=== PATIENT | female | born 1935 | race Caucasian/White ===

== ENCOUNTER 2016-09-22 08:08 | Inpatient (IN) | payer MEDICARE, BC ==
[~2016-09-22] VITALS: Ht 167.6 cm; Wt 64.3 kg
[~2016-09-22 08:08] MED LIST: ACET325T45 PO; ASC500 PO; ASPI81TA3 PO; CALC-762 PO; CHOL10009 PO; CLON0.5T4 PO; DOCU100C PO; FER325 PO; GABA300C16 PO; METO-448 PO; MULT-235 PO; POLY17PO3 PO; ROPI0.25 PO; SENN-53 PO
[2016-09-22] MEDS ORDERED: PIPER-TAZO 3.375 GM IV (PMX) 100 ML IVPB STA (08:22)
[2016-09-22] MEDS ORDERED: SOD CHLORIDE 0.9% 1,000 ML IV ONE ×2 (08:30)
[2016-09-22] MEDS ORDERED: VANCOMYCIN 1 GM (PMX) 250 ML IVPB ONE (08:30)
[2016-09-22] MEDS ORDERED: HYDR-906 PO (08:42)
[2016-09-22] MEDS ORDERED: ONDA4TAB95 PO (08:43)
[2016-09-22] MEDS ORDERED: ZOLP5TAB6 PO (08:44)
[2016-09-22] MEDS ORDERED: GABA300C16 PO (08:45)
[2016-09-22] MEDS ORDERED: CYAN100080 PO (08:46)
--- NOTE | 2016-09-22 09:27 | RADRPT ---
PROCEDURE: Chest Radiograph. CLINICAL INDICATION: Sepsis TECHNIQUE: Single frontal chest radiograph. COMPARISON: Chest radiograph 06/03/2016 FINDINGS: The patient is rotated. Heart size is poorly evaluated. Atherosclerotic calcifications are present . Lung volumes are decreased. There is mild right basilar atelectasis. There is new patchy left ba silar air space disease suggesting infiltrate and possible underlying effusion. The bones are int act. IMPRESSION: 1. New left basilar air space disease suggesting left basilar infiltrate and possible underlying ef fusion. A lateral view can aid in evaluating for pleural effusion. 2. Mild right basilar atelectasis. 3. Atherosclerotic vascular disease RPTAT: KK .Matteo Dyson MD, MD Date Time Electronically viewed and signed by .Matteo Dyson MD, MD on 09/22/2016 09:27 .B/
[2016-09-22 09:51] LABS: ADD SCAN DIFF NO
[2016-09-22 09:55] LABS: BASOPHILS % 0.2 % (0.0-2.0); HEMATOCRIT 33.2 % (37.0-47.0); HEMOGLOBIN 10.3 g/dl (12.0-16.0); LYMPHOCYTES % 15.6 % (15.0-51.0); MEAN CORPUSCULAR HEMOGLOBIN 32.8 pg (29.0-33.0); MEAN CORPUSCULAR VOLUME 105.7 fl (82.0-101.0); MEAN PLATELET VOLUME 9.5 fl (7.4-10.4); MONOCYTE # 0.3 10^3/ul (0.3-0.9); NEUTROPHIL # 4.9 10^3/ul (1.6-7.5); NEUTROPHILS % 78.7 % (39.0-77.0); PLATELET COUNT 108 10^3/UL (140-415); RED BLOOD COUNT 3.14 10^6/ul (4.20-5.40); RED CELL DISTRIBUTION WIDTH 17.8 % (11.5-14.5); WHITE BLOOD COUNT 6.2 10^3/ul (4.8-10.8)
[2016-09-22 10:03] LABS: INR 1.29; PROTIME 16.2 Sec (12.2-14.2); PT RATIO 1.3
[2016-09-22 10:04] LABS: PARTIAL THROMBOPLASTIN TIME 34.4 Sec (25.0-35.0)
[2016-09-22 10:09] LABS: ALBUMIN 2.2 g/dl (3.3-4.9)
[2016-09-22 10:10] LABS: POTASSIUM 3.7 mmol/L (3.5-5.1)
[2016-09-22 10:12] LABS: ALBUMIN/GLOBULIN RATIO 0.75; BILIRUBIN,INDIRECT 0.7 mg/dl (0-1.1); BILIRUBIN,TOTAL 0.7 mg/dl (0.2-1.3); CREATININE 0.5 mg/dl (0.44-1.00); TOTAL PROTEIN 5.1 g/dl (6.1-8.1)
[2016-09-22 10:24] LABS: TROPONIN-I 0.014 ng/ml (0.00-0.12)
[2016-09-22 11:15] LABS: ADD UMIC YES; URINE BILIRUBIN (Dip) NEGATIVE (NEGATIVE); URINE BLOOD (Dip) TRACE (NEGATIVE); URINE COLOR LT. YELLOW (YELLOW); URINE GLUCOSE (Dip) NEGATIVE (NEGATIVE); URINE KETONES (Dip) NEGATIVE (NEGATIVE); URINE LEUKOCYTE ESTERASE (Dip) 1+ (NEGATIVE); URINE NITRITE (Dip) NEGATIVE (NEGATIVE); URINE TOTAL PROTEIN (Dip) NEGATIVE (NEGATIVE); URINE UROBILINOGEN (Dip) 0.2 E.U./dL (0.1-1.0)
[2016-09-22 11:34] LABS: BACTERIA,URINE RARE; URINE RBCS 0-2 /HPF (0)
[2016-09-22] MEDS ORDERED: ACETAMINOPHEN 500 MG TAB PO STA (11:50)
[2016-09-22] MEDS ORDERED: ONDANSETRON 4 MG INJ IV PRN ×2 (12:00→14:30)
[2016-09-22] MEDS ORDERED: ACETAMINOPHEN 325 MG TAB PO PRN ×3 (12:00→14:30)
[2016-09-22 12:43] VITALS: TEMP 100.1
[2016-09-22 13:00] VITALS: BP 133/70; PULSE 72; RESP 18
[2016-09-22 13:11] VITALS: PULSE 70
[2016-09-22 14:30] VITALS: Ht 167.6 cm; Wt 64.3 kg
[2016-09-22] MEDS ORDERED: DOCUSATE SODIUM 100 MG CAP PO PRN (14:30)
[2016-09-22] MEDS ORDERED: MAGNESIUM HYDROXIDE 30ML CUP PO PRN (14:30)
[2016-09-22] MEDS ORDERED: ALBUTEROL/IPRATROPIUM (NEB) 3 ML AMP NEB PRN (14:30)
[2016-09-22] MEDS ORDERED: NACL 0.9% 3 ML SYG IV SCH (14:30)
[2016-09-22] MEDS ORDERED: VANCOMYCIN IV PER PHARMACY XX SCH (14:30)
--- NOTE | 2016-09-22 15:23 | HP ---
DATE OF ADMISSION: 09/22/2016 REASON FOR ADMISSION: Urinary tract infection, pneumonia, fevers high grade. HISTORY OF PRESENT ILLNESS: The patient is an unfortunate 80-year-old Burkinan female with history o f hypertension, depression, gastroesophageal reflux disease, anxiety, anemia, history of left femur fracture status post surgery, history of constipation who currently resides at [facility]. She previously presented under my care in May 2016 with left femur fracture. At that time, she wa s seen by Dr. Mckeon and he noted that the patient does have intramedullary tayler in place with no loosening, so patient did not require surgery. Also, she did require 2 units of packed red blood ce lls secondary symptomatic anemia. The patient also has history of elevated CEA, paroxysmal atrial f ibrillation, malnutrition, leukopenia, and restless leg syndrome. The patient resides at [facility]. She was in usual state of health up until the day when she was note d to be more weak, also noted to have fevers and she was transferred to [facility] Department. Upon evaluation, the patient underwent extensive workup including a chest x-ray which showed new left basilar airspace disease suggesting left basilar infiltrate and possible underlying effusion and lateral view can aid in the evaluation for pleural effusion. There is mild right basi lar atelectasis and atherosclerotic vascular disease. Labs revealed slight anemia and urinalysis co nfirmed mild UTI with leukocyte esterase +1, WBCs 10 to 25. In the ER, patient received broad spect rum antibiotic with vancomycin and Zosyn. In looking at the patient's old records from previous hos pitalization, the patient had positive MRSA of the nares. Upon evaluation of the patient, the patie nt is a poor historian secondary to her dementia. She cannot provide much history, but she does ans wer questions simply with a few sentences. The patient is admitted for further care. PAST MEDICAL HISTORY: Includes hypertension, left femoral fracture, gastroesophageal reflux disease , anxiety, anemia, depression, chronic pain. ALLERGIES: MORPHINE. SOCIAL HISTORY: The patient denies tobacco, alcohol or IV drug use. The patient is a poor historia n. She resides at [facility]. SURGICAL HISTORY: Left femur intramedullary tayler placement. FAMILY HISTORY: The patient has a brother and his name is Ethan. I left him a message and his p [place] number area code [phone]. MEDICATIONS: Patient's medications extensive and include the followin. Tylenol 650 q.6h. p.r.n. 2. [place] 5/325 q.6h. p.r.n. 3. Zofran 4 mg q.6h. p.r.n. for nausea and vomiting. 4. Ambien 5 mg at bedtime p.r.n. for insomnia. 5. Dulcolax 100 mg twice a day. 6. Metoprolol tartrate 25 mg b.i.d. 7. Clonazepam 0.5 mg t.i.d. 8. Gabapentin 300 mg t.i.d. 9. Vitamin B12 1000 mg q. weekly on Monday. 10. Multivitamin 1 tablet daily. 11. Oyster Guillaume plus D 1 tab daily. 12. Ropinirole 0.25 mg at bedtime. 13. Laxatives with Senna 1 tab at bedtime. 14. Vitamin D 1000 mg daily. PHYSICAL EXAMINATION: VITAL SIGNS: Temperature is 100.1, pulse 70, respirations 16, blood pressure 120/79, saturation 100 % on 3 liters. T-max 102.4. GENERAL: The patient in no acute distress. HEENT: Right posterior head, questionable soft tissue area suggestive of some deficient skull bone. The patient is pale. CARDIOVASCULAR: S1 and S2, regular rate. LUNGS: Clear. ABDOMEN: Soft, nontender. EXTREMITIES: Trace edema lower extremities. The patient is moving all extremities. LABORATORY DATA: White count is actually normal at 6.2, hemoglobin 10.3, hematocrit 33, platelet co unt of 108, neutrophils 79%, lymphocytes 16%, platelet count was 108. Sodium is 139, potassium 3.7, chloride 101, bicarbonate 32, BUN is 11, creatinine 0.5, glucose of 82. Lactic acid is normal at 1 .2. LFTs are normal. Albumin is low at 2.2 suggestive of moderate protein malnutrition. UA shows nitrite present, leukocyte esterase +1, WBC 10 to 25, INR is 1.29. IMAGING TESTS: Chest x-ray shows new left basilar airspace disease suggesting left basilar infiltra te and possible underlying effusion. Lateral view can aid in the evaluation for pleural effusion. There is mild right basilar atelectasis. There is atherosclerotic vascular disease. EKG: Shows sinus rhythm with occasional and consecutive premature ventricular complexes and fusion complexes at 81 beats per minute. ASSESSMENT AND PLAN: This is a 80-year-old female with history of anxiety disorder, hyper tension and multiple orthopedic surgeries in the past, gastroesophageal reflux disease, history of f alls and history of left mid femoral fracture with old intramedullary tayler, history of arrhythmia and likely underlying atrial fibrillation. The patient was seen by the employment evaluator/case manager in the past, now p resents with urinary tract infection and pneumonia. 1. Respiratory. Stable O2 support will be provided. Treat underlying pneumonia. 2. Cardiovascular. The patient with arrhythmia, possible underlying atrial fibrillation. Patient with risk of fall. Continue cardiac meds. The patient will be placed with Lovenox for DVT prophyla xis. 3. Continue with Lopressor. 4. Infectious disease. The patient with urinary tract infection and pneumonia. The patient will b e placed on Zosyn and vancomycin. The patient does have a history of methicillin-resistant Staphylo coccus aureus. We will repeat that. 5. Anemia. Previous workup revealed anemia of chronic disease. Will observe. No need for transfu pillo. 6. Abnormal skull. We will discuss with the brother about findings. 7. Moderate protein malnutrition with low albumin. Check prealbumin and protein supplements. Enco urage the patient to eat. Patient will be placed on a soft diet. 8. Psychiatric disorder. Continue Klonopin. 9. Physical therapy as tolerated. Continue to monitor fever curve and symptomatology 10. History of elevated CEA. We will follow. Dictated By: ALEXANDER ROSADO/LIZ Conf#: [id number] DID#: [id number]
[2016-09-22 16:27] VITALS: PULSE 72
[2016-09-22] MEDS: PIPER-TAZO 3.375 GM IV (PMX) 100 ML IVPB SCH (17:25)
[2016-09-22 20:00] VITALS: BP 129/85; RESP 17
[2016-09-22] MEDS: VANCOMYCIN 750 MG in SOD CHLORIDE 0.9% 150 ML IVPB SCH (20:32)
[2016-09-22] MEDS: DOCUSATE SODIUM 100 MG CAP PO SCH (20:32)
[2016-09-22] MEDS: METOPROLOL 25 MG TAB PO SCH (20:33)
[2016-09-22] MEDS: GABAPENTIN 300 MG CAP PO SCH (20:34)
[2016-09-22] MEDS: ROPINIROLE 0.25 MG TAB PO SCH (20:34)
[2016-09-22 20:48] VITALS: PULSE 71
[2016-09-22] MEDS: clonAZEPAM 0.5 MG TAB PO SCH (22:59)
[2016-09-23] VITALS (12 sets, daily range): BP systolic 128–164; BP diastolic 63–80; PULSE 60–82; RESP 17–19
[2016-09-23] MEDS: PIPER-TAZO 3.375 GM IV (PMX) 100 ML IVPB SCH ×4 (01:00→18:31)
[2016-09-23] MEDS: PANTOPRAZOLE (EC) 40 MG TAB PO SCH (06:14)
[2016-09-23 07:23] LABS: ADD SCAN DIFF NO
[2016-09-23 07:28] LABS: HEMATOCRIT 29.1 % (37.0-47.0); LYMPHOCYTES # 0.9 10^3/ul (0.8-2.9); LYMPHOCYTES % 22.1 % (15.0-51.0); MEAN CORPUSCULAR HEMOGLOBIN 32.8 pg (29.0-33.0); MEAN CORPUSCULAR HGB CONC 30.9 g/dl (32.0-37.0); MEAN CORPUSCULAR VOLUME 106.2 fl (82.0-101.0); MEAN PLATELET VOLUME 10.1 fl (7.4-10.4); MONOCYTE # 0.2 10^3/ul (0.3-0.9); MONOCYTES % 4.5 % (0.0-11.0); NEUTROPHILS % 73.2 % (39.0-77.0); PLATELET COUNT 104 10^3/UL (140-415); RED BLOOD COUNT 2.74 10^6/ul (4.20-5.40); RED CELL DISTRIBUTION WIDTH 17.7 % (11.5-14.5)
[2016-09-23 07:40] LABS: POTASSIUM 3.3 mmol/L (3.5-5.1)
[2016-09-23 07:42] LABS: BILIRUBIN,INDIRECT 0.5 mg/dl (0-1.1); BILIRUBIN,TOTAL 0.5 mg/dl (0.2-1.3); CREATININE 0.56 mg/dl (0.44-1.00)
[2016-09-23 07:43] LABS: ALBUMIN/GLOBULIN RATIO 0.68; CALCIUM 7.9 mg/dl (8.4-10.2); TOTAL PROTEIN 4.9 g/dl (6.1-8.1)
[2016-09-23] MEDS: ENOXAPARIN 40 MG/0.4 ML SYG SC SCH (09:00)
[2016-09-23 09:01] LABS: THYROID STIMULATING HORMONE 1.1 MIU/L (0.465-4.680)
[2016-09-23] MEDS: clonAZEPAM 0.5 MG TAB PO SCH ×3 (09:18→21:47)
[2016-09-23] MEDS: CHOLECALCIFEROL 1,000 UNIT TAB PO SCH (09:18)
[2016-09-23] MEDS: GABAPENTIN 300 MG CAP PO SCH ×3 (09:18→21:47)
[2016-09-23] MEDS: CYANOCOBALAMIN 500 MCG TAB PO SCH (09:18)
[2016-09-23] MEDS: DOCUSATE SODIUM 100 MG CAP PO SCH ×2 (09:18→21:47)
[2016-09-23] MEDS: SENNA TAB PO SCH (09:19)
[2016-09-23] MEDS: METOPROLOL 25 MG TAB PO SCH ×2 (09:19→21:48)
[2016-09-23] MEDS: CALCIUM/VITAMIN D (500/200) TAB PO SCH (09:19)
[2016-09-23] MEDS: VANCOMYCIN 750 MG in SOD CHLORIDE 0.9% 150 ML IVPB SCH ×2 (09:20→21:36)
[2016-09-23] MEDS: SILVER SULFADIAZINE 1% 25 GM CR TOP SCH (12:36)
--- NOTE | 2016-09-23 14:07 | CONS ---
DATE OF ADMISSION: 09/22/2016 DATE OF CONSULTATION: 09/22/2016 TYPE OF CONSULTATION: Infectious Disease. REASON FOR CONSULTATION: Antibiotic management. HISTORY OF PRESENT ILLNESS: Rose Yeh is a 80-year-old unfortunate Tajik female who comes in with UTI, pneumonia and high-grade fever. Her past problems include: 1. Hypertension. 2. Depression. 3. GERD. 4. Anxiety. 5. Anemia. 6. History of left femoral fracture, status post surgery. 7. Constipation. She developed a left femoral fracture in 05/2016. She was seen by Dr. Mckeon who noted that she had an intramedullary tayler in place with no loosening, so the patient did not require surgery. She r equired 2 units packed red blood cells for symptomatic anemia. She also has elevated CEA, paroxysma l atrial fibrillation, malnutrition, leukopenia, and restless leg syndrome. On 09/22/2016, she was noted to be weaker, had a fever and was transferred to [facility] for evaluation. Chest x- ray showed a new basilar airspace opacity suggesting left basilar infiltrate and possible effusion. There is mild right basilar atelectasis as well. She was slightly anemic. Urine showed 1+ leukocy te esterase, 10 to 25 white cells per high-power field. In the emergency room, she was started on v ancomycin and Zosyn. She has a history of positive MRSA in the nares. She has senile dementia as I believe I noted. PAST SURGICAL HISTORY: As noted. PAST MEDICAL HISTORY: As noted. ALLERGIES: MORPHINE. FAMILY HISTORY: Noncontributory. SOCIAL HISTORY: She does not smoke, drink or abuse drugs. MEDICATIONS: Per chart. REVIEW OF SYSTEMS: Noncontributory. PHYSICAL EXAMINATION: GENERAL: The patient is an elderly appearing female who is awake, responsive, confused, in no acute distress. VITAL SIGNS: Temperature max is 102.4. Other vital signs are normal. SKIN: Without generalized rash. HEENT: Within normal limits. NECK: Supple. LYMPH NODES: None palpable. CHEST: Decreased breath sounds at the bases. HEART: Without murmur or gallop. ABDOMEN: Soft, nontender, without organosplenomegaly, or masses. EXTREMITIES: Without cyanosis or clubbing. She has trace lower extremity edema. RECTAL AND GENITAL: Deferred. NEUROLOGIC: No focal neurological abnormalities. ANCILLARY LABORATORY DATA: White count is 6.2, H and H 10.3 and 33, platelet count 108,000 with 79% polys. BUN and creatinine 11/0.5. Random glucose of 82. Albumin is very low at 2.2 suggestive of moderate protein calorie malnutrition. Her urine showed 1+ leukocyte esterase, 10 to 25 white cell s per high-power field. Blood cultures are positive for gram-positive cocci in clusters and gram-negative rods, so she has 2 blood cultures that show 2 different things. She is currently on vancomycin and Zosyn. IMPRESSION AND PLAN: The patient with probable urinary tract infection with sepsis. I will repeat her blood cultures if they were not repeated. I will dictate my findings to Dr. Aguilar. Dictated By: JOHN FOOTE MD, JD/LIZ Conf#: [id number] DID#: [id number]
[2016-09-23] MEDS ORDERED: POTASSIUM CHLORIDE (SR) 20 MEQ TAB PO STA (14:52)
--- NOTE | 2016-09-23 15:37 | PN ---
DATE: 09/23/2016 SUBJECTIVE: The patient overall doing better, but she was found to have bacteremia, so I consulted Dr. Bridges, the infectious disease specialist. She has 2 organisms showing in the blood cultures. The patient's appetite improved as discussed with nursing staff. I also had a conversation with the patient's brother. His name is , phone number [phone]. PHYSICAL EXAMINATION: VITAL SIGNS: Temperature 98.9, pulse 64, respirations 19, blood pressure 139/62, saturation 91% on room air. Temperature max 99.1. Yesterday at noon, she had a high-grade temperature around 101, bu t overall doing better. GENERAL: The patient is pale. HEENT: She has right scalp area evidence of old surgical scar as discussed with the brother, who co nfirmed. CARDIOVASCULAR: S1, S2. LUNGS: Decreased bilaterally. ABDOMEN: Soft, nontender. EXTREMITIES: No clubbing, cyanosis, or edema. The patient is moving all extremities. She has SCDs and special boots to the legs for wound prevention. LABORATORY DATA: White count is 4, hemoglobin 9, hematocrit 29, platelet count 104, neutrophils 72% , lymphocytes 22%. Chemistries: Sodium is 141, potassium is slightly low at 3.3, chloride 104, bic arbonate 31, BUN is 8, creatinine 0.56, glucose of 87. Albumin is low at 2.0. TSH is 1.1. INR was 1.29 on admission. Urine culture shows gram-negative rods 20,000 to 30,000 only. MRSA screening is pending. Blood cul tures: 1 shows gram-positive cocci in clusters, the other blood culture shows gram-negative rods. MEDICATIONS: Include: 1. Silvadene daily. 2. Lovenox 40 mg subcutaneous daily. 3. Calcium plus D 1 tab daily. 4. Vitamin D 1000 daily. 5. Vitamin B12 1000 daily. 6. Senna mg daily. 7. Klonopin 0.5 t.i.d. 8. Colace 100 b.i.d. 9. Neurontin 300 t.i.d. 10. Lopressor 25 b.i.d. 11. Requip 0.25 at bedtime. 12. Vancomycin dose per pharmacy. 13. Zosyn 3.375 IV q.6h. 14. Zofran p.r.n. 15. Tylenol p.r.n. 16. Ambien p.r.n. 17. Milk of magnesia p.r.n. 18. DuoNeb q.2h. p.r.n. 19. [place] p.r.n. The patient seen by speech therapist who recommended mechanical soft with thin liquids, no straw. A ppreciate wound consult recommendations as well. Noted pictures in the chart. ASSESSMENT AND PLAN: This is a 80-year-old female with history of anxiety disorder, hyper tension, multiple orthopedic surgeries in the past, gastroesophageal reflux disease, history of brai n tumor with surgical resection, recent left femur fracture, history of arrhythmia with likely under lying rhythm of atrial fibrillation, with risk of fall, presents with both urinary tract infection a nd pneumonia. 1. Respiratory. O2 support as needed: Continue treatment for pneumonia. 2. Cardiovascular. The patient with arrhythmia with possible underlying atrial fibrillation. Cont inue deep venous thrombosis prophylaxis with Lovenox. Will not fully anticoagulate her secondary to risk of fall. Continue beta blockers. 3. Infectious disease. The patient with both urinary tract infection and pneumonia bacteremia. Re peat blood cultures. Continue Zosyn and vancomycin. This patient is afebrile. I appreciate Dr. Dr albert's recommendation and we will ask him regarding, once we have the cultures back, the duration an d type of antibiotics. 4. Anemia. Check stool occult blood. Workup on previous hospitalization shows anemia of chronic d isease. Outpatient gastrointestinal workup is recommended. 5. Psychiatric. Continue all psych medications. 6. Continue stool softeners. Continue supportive care. 7. Continue wound care. Case discussed with the brother. 8. Mild thrombocytopenia. Observe. No active bleeding. 9. History of elevated CEA, continues to improve. We will follow. Dictated By: ALEXANDER ROSADO/LIZ Conf#: [id number] DID#: [id number]
[2016-09-23] MEDS: ROPINIROLE 0.25 MG TAB PO SCH (21:49)
[2016-09-24] VITALS (12 sets, daily range): BP systolic 119–143; BP diastolic 62–78; PULSE 56–70; RESP 18–19
[2016-09-24] MEDS: PIPER-TAZO 3.375 GM IV (PMX) 100 ML IVPB SCH ×4 (00:59→18:29)
[2016-09-24] MEDS: PANTOPRAZOLE (EC) 40 MG TAB PO SCH (05:56)
[2016-09-24] MEDS: VANCOMYCIN 1 GM in NS 250 ML IVPB SCH ×2 (08:30→20:44)
[2016-09-24] MEDS: SENNA TAB PO SCH (09:00)
[2016-09-24] MEDS: ENOXAPARIN 40 MG/0.4 ML SYG SC SCH (09:00)
[2016-09-24] MEDS: SILVER SULFADIAZINE 1% 25 GM CR TOP SCH (09:20)
[2016-09-24] MEDS: clonAZEPAM 0.5 MG TAB PO SCH ×3 (09:21→20:48)
[2016-09-24] MEDS: METOPROLOL 25 MG TAB PO SCH ×2 (09:21→20:49)
[2016-09-24] MEDS: GABAPENTIN 300 MG CAP PO SCH ×3 (09:21→20:48)
[2016-09-24] MEDS: CYANOCOBALAMIN 500 MCG TAB PO SCH (09:22)
[2016-09-24] MEDS: DOCUSATE SODIUM 100 MG CAP PO SCH ×2 (09:22→20:48)
[2016-09-24] MEDS: CHOLECALCIFEROL 1,000 UNIT TAB PO SCH (09:22)
[2016-09-24] MEDS: CALCIUM/VITAMIN D (500/200) TAB PO SCH (09:22)
[2016-09-24] MEDS: HYDROCODONE/APAP (5/325) TAB PO PRN (09:48)
[2016-09-24] MEDS: MUPIROCIN 2% 22 GM OINT TOP SCH ×2 (12:47→20:49)
--- NOTE | 2016-09-24 14:44 | PN ---
DATE: 09/24/2016 SUBJECTIVE: Patient seen today. She looks much better today. She ate all of her meal and she is m ore alert, definitely much improved. Noted urine culture results and blood culture results. Blood cultures which did show E. coli pansensitive also to quinolones and another blood culture showed Sta ph species, awaiting final results. Urine culture shows E. coli sensitive as well to all antibiot ics, including quinolones. The patient also has MRSA of the nares positive. Again, the patient is improving. PHYSICAL EXAMINATION: VITAL SIGNS: Temperature is 98.3, afebrile, pulse 60, respirations 19, blood pressure 122/86 today, saturation 99% on room air. GENERAL: No acute distress. HEENT: Normocephalic, atraumatic. The patient is pale. CARDIOVASCULAR: S1 and S2, regular rate. LUNGS: Clear. ABDOMEN: Soft, nontender. EXTREMITIES: No clubbing, cyanosis, or edema. LABORATORY DATA: No new labs today. Yesterday, white count was 4 with hemoglobin of 9, platelet co unt was low at 104, potassium was low at 3.3, albumin was low at 2.0, but again, patient ate well to day. Urine culture again showed E. coli. Blood cultures showed 1 bottle E. coli and the other one Staphylococcus species, all pansensitive and MRSA of the nares was positive. MEDICATIONS: 1. Bactroban just started; applied b.i.d. to the nares. 2. Vancomycin dose per pharmacy. 3. Silvadene cream daily. 4. Lovenox 40 mg subcutaneous daily. 5. Calcium plus D 1 tab daily. 6. Vitamin D 1000 daily. 7. Vitamin B12 1000 daily. 8. Senna 2 mg daily. 9. Protonix 40 mg daily. 7. Klonopin 0.5 t.i.d. 8. Again, the senna was stopped because she had diarrhea. 9. Colace 100 b.i.d. 8. Neurontin 300 t.i.d. 9. Lopressor 25 b.i.d. 10. Requip 0.25 at bedtime. 11. Zosyn 3.375 IV q.6h. 12. Zofran p.r.n. 13. Tylenol p.r.n. 14. Ambien p.r.n. 15. Milk of magnesia p.r.n. 16. Breathing treatments p.r.n. 17. [place] p.r.n. ASSESSMENT AND PLAN: This is a 80-year-old Chinese female with history of anxiety disorder, hyperte nsion, multiple orthopedic surgeries in the past, gastroesophageal reflux disease, history of brain tumor status post surgical resection, recent left femur fracture, history of arrhythmia with risk o f fall, presented with urinary tract infection, pneumonia and bacteremia. 1. Respiratory. Continue O2 support as needed. Continue antibiotic management for pneumonia. May able to switch oral medication to Levaquin. Will discuss with ID. 2. Cardiovascular. The patient with history of arrhythmia with underlying atrial fibrillation. Th e patient has significant anemia, not a great candidate for anticoagulation. Also, she has a risk f or fall. Continue beta blockers. Continue DVT prophylaxis. 3. Infectious disease. The patient with urinary tract infection, pneumonia and bacteremia. Contin ue above antibiotics. Dr. Bridges to make a final recommendation regarding antibiotic management. F ollow up on blood culture results. 4. Anemia. Follow up H and H, currently no need for transfusion. 5. Psychiatric. Continue all psych medications. 6. Hold stool softener in the setting of diarrhea. Monitor for possible C. difficile. 7. Continue wound care. 8. Mild thrombocytopenia. Observe. 9. History of elevated CEA. 10. Patient continues to improve. We will follow. Dictated By: ALEXANDER ROSADO/LIZ Conf#: [id number] DID#: [id number]
--- NOTE | 2016-09-24 19:57 | CONS ---
Date/Time of Note Date/Time of Note DATE: 09/24/16 TIME: 19:44 Assessment/Plan Assessment/Plan Chief Complaint/Hosp Course ID PROGRESS NOTE 24H INTERVAL SUMMARY * Lethargic, no fever, VSS, NAD * No fevers, WBC WNL, PLT ~100 range, renal Fx wnl PHYSICAL EXAMINATION: GENERAL: 80 yo F, lethargic, looks comfortable HEENT: Unremarkable -- NECK: Supple, trachea midline. CHEST: Rise symmetrical without dyspnea ABDOMEN: deferred EXTREMITIES: Moves all extremities, Without cyanosis. ID ASSESSMENT: 80-yo Malawian speaking F w/PMHx Depression/anxiety, HTN, GERD, anemia, admit with: 1. Sepsis w/high-grade fevers and (+)GNR/Staph Blood Cx on admission: * BLOOD CULTURE Final BCULT GRAM BOTTLE 1 Gram negative rods . seen on gram stain of the broth Organism 1 ESCHERICHIA COLI * BLOOD CULTURE Preliminary BCULT GRAM BOTTLE 1 Gram positive cocci in clusters 1 of 2 bottles . seen on gram stain of the broth Organism 1 STAPHYLOCOCCUS SPECIES 2. UTI = > URINE CULTURE Final Organism 1 ESCHERICHIA COLI COLONY COUNT 20,000 - 30,000 CFU/ml 3. LLL PNA * 09/22/16 CXR: 1. New left basilar air space disease suggesting left basilar infiltrate and possible underlying effusion. 4. History of left femoral fracture, status post surgery. 5. Loose stools s/p stool softeners + Senna for Constipation. (+) MRSA Nares screen ->Bactroban ALLERGY: None to ABX CURRENT ABX: Vanco IV + Bactroban to nares + Zosyn ID PLAN: 1. DC Zosyn = taper to Ceftriaxone to cover GNR E.Coli septicemia/UTI 2. Continue Vanco IV ?await final ID BCx still pending 3. Bactroban onboard for MRSA nares colonization . Problems: Consultation Date/Type/Reason Admit Date/Time Sep 22, 2016 at 12:58 Initial Consult Date Type of Consultation: ID Exam/Review of Systems Vital Signs Vitals Vital Signs Date Time Temp Pulse Resp B/P Pulse Ox O2 Delivery O2 Flow Rate FiO2 09/24/16 16:24 98.5 64 19 119/62 95 09/22/16 13:00 Room Air 09/22/16 12:43 3.0 Intake and Output 09/23/16 09/23/1617 15:00 23:00 07:00 Intake Total 400 ml 1000 ml Output Total 1500 ml 403 ml Balance -1100 ml 597 ml Results Result Diagram: 09/23/1665409/23/16 0655 Results 24 hrs Laboratory Tests Test 09/24/16 09:05 Stool Occult Blood NEGATIVE Medications Medications Current Medications Ondansetron HCl (Zofran Inj) 4 mg Q6H PRN IV NAUSEA AND/OR VOMITING; Start 09/22 at 14:30 Acetaminophen (Tylenol Tab) 650 mg Q6H PRN PO PAIN LEVEL 1-3 OR FEVER; Start at 14:30 Zolpidem Tartrate (Ambien) 5 mg QHS PRN PO INSOMNIA; Start 09/22/16 at 14:30 Docusate Sodium (Colace) 100 mg Q12H PRN PO CONSTIPATION; Start 09/22/16 at 14: 30 Magnesium Hydroxide (Milk Of Mag) 30 ml DAILY PRN PO CONSTIPATION; Start at 14:30 Pantoprazole (Protonix Tab) 40 mg DAILY@06 PO Last administered on 09/24/16 05 :56; Admin Dose 40 MG; Start 09/23/16 at 06:00 Enoxaparin Sodium (Lovenox) 40 mg DAILY SC ; Start 09/23/16 at 09:00 Calcium/Vitamin D (Oyster Shell/ Vit-D (500/200)) 1 tab DAILY PO Last administered on 09/24/16 09:22; Admin Dose 1 TAB; Start 09/23/16 at 09:00 Cholecalciferol (Vitamin D) 1,000 unit DAILY PO Last administered on 09/24/16 09:22; Admin Dose 1,000 UNIT; Start 09/23/16 at 09:00 Clonazepam (Klonopin) 0.5 mg TID PO Last administered on 09/24/16 12:47; Admin Dose 0.5 MG; Start 09/22/16 at 21:00 Cyanocobalamin (Vitamin B12) 1,000 mcg DAILY PO Last administered on 09/24/16 09:22; Admin Dose 1,000 MCG; Start 09/23/16 at 09:00 Docusate Sodium (Colace) 100 mg BID PO Last administered on 09/24/16 09:22; Admin Dose 100 MG; Start 09/22/16 at 21:00 Gabapentin (Neurontin) 300 mg TID PO Last administered on 09/24/16 12:47; Admin Dose 300 MG; Start 09/22/16 at 21:00 Acetaminophen/ Hydrocodone Bitart ([place] (5/325)) 1 tab Q6 PRN PO SEVERE PAIN LEVEL 7-10 Last administered on 09/24/16 09:48; Admin Dose 1 TAB; Start at 14:30 Metoprolol Tartrate (Lopressor) 25 mg BID PO Last administered on 09/24/16 09: 21; Admin Dose 25 MG; Start 09/22/16 at 21:00 Ropinirole HCl 0.25 mg 0.25 mg QHS PO Last administered on 09/23/16 21:49; Admin Dose 0.25 MG; Start 09/22/16 at 21:00 Piperacillin Sod/ Tazobactam Sod (Zosyn 3.375gm/ 100 ml (Pmx)) 100 ml @ 200 mls /hr Q6 IVPB Last administered on 09/24/16 18:29; Admin Dose 200 MLS/HR; Start 09/22/16 at 18:00 Silver Sulfadiazine 1 applic 1 applic DAILY TOP Last administered on 09/24/16 09:20; Admin Dose 1 APPLIC; Start 09/23/16 at 13:00 Vancomycin HCl (Vancocin) 250 ml @ 125 mls/hr Q12H IVPB Last administered on 08:30; Admin Dose 125 MLS/HR; Start 09/24/16 at 08:00 Mupirocin (Bactroban) 1 applic BID TOP Last administered on 09/24/16 12:47; Admin Dose 1 APPLIC; Start 09/24/16 at 11:30 URIAH LOO NP Sep 24, 2016 19:54
[2016-09-24] MEDS: CEFTRIAXONE 1 GM/50 ML (PMX) 50 ML IVPB SCH (20:44)
[2016-09-24] MEDS: ROPINIROLE 0.25 MG TAB PO SCH (20:48)
[2016-09-24] MEDS: ZOLPIDEM 5 MG TAB PO PRN (20:56)
[2016-09-25] VITALS (13 sets, daily range): BP systolic 98–174; BP diastolic 58–81; PULSE 60–72; RESP 18–19
[2016-09-25] MEDS: HYDROCODONE/APAP (5/325) TAB PO PRN ×2 (04:02→10:34)
[2016-09-25] MEDS: PANTOPRAZOLE (EC) 40 MG TAB PO SCH (06:08)
[2016-09-25 07:17] LABS: ADD SCAN DIFF NO
[2016-09-25 07:19] LABS: ABNORMAL IP MESSAGE 1; BASOPHILS % 0.3 % (0.0-2.0); EOSINOPHILS % 1.4 % (0.0-7.0); HEMATOCRIT 31.8 % (37.0-47.0); HEMOGLOBIN 9.2 g/dl (12.0-16.0); LYMPHOCYTES % 33.2 % (15.0-51.0); MEAN CORPUSCULAR HEMOGLOBIN 31.9 pg (29.0-33.0); MEAN CORPUSCULAR HGB CONC 28.9 g/dl (32.0-37.0); MEAN CORPUSCULAR VOLUME 110.4 fl (82.0-101.0); MEAN PLATELET VOLUME 10.2 fl (7.4-10.4); MONOCYTE # 0.2 10^3/ul (0.3-0.9); MONOCYTES % 6.1 % (0.0-11.0); NEUTROPHIL # 1.7 10^3/ul (1.6-7.5); NEUTROPHILS % 58.7 % (39.0-77.0); RED BLOOD COUNT 2.88 10^6/ul (4.20-5.40); RED CELL DISTRIBUTION WIDTH 17.4 % (11.5-14.5)
[2016-09-25 07:23] LABS: PLATELET COUNT 102 10^3/UL (140-415)
[2016-09-25 07:40] LABS: POTASSIUM 3.5 mmol/L (3.5-5.1)
[2016-09-25 07:43] LABS: CALCIUM 8.1 mg/dl (8.4-10.2); CREATININE 0.59 mg/dl (0.44-1.00)
[2016-09-25 07:48] LABS: MAGNESIUM 2.1 mg/dl (1.7-2.5); PHOSPHORUS 3.8 mg/dl (2.5-4.9)
[2016-09-25] MEDS: VANCOMYCIN 1 GM in NS 250 ML IVPB SCH ×2 (08:28→20:50)
[2016-09-25] MEDS: SILVER SULFADIAZINE 1% 25 GM CR TOP SCH (09:26)
[2016-09-25] MEDS: MUPIROCIN 2% 22 GM OINT TOP SCH ×2 (09:26→20:45)
[2016-09-25] MEDS: DOCUSATE SODIUM 100 MG CAP PO SCH ×2 (09:26→20:46)
[2016-09-25] MEDS: CALCIUM/VITAMIN D (500/200) TAB PO SCH (09:26)
[2016-09-25] MEDS: CYANOCOBALAMIN 500 MCG TAB PO SCH (09:27)
[2016-09-25] MEDS: GABAPENTIN 300 MG CAP PO SCH ×3 (09:27→20:46)
[2016-09-25] MEDS: CHOLECALCIFEROL 1,000 UNIT TAB PO SCH (09:27)
[2016-09-25] MEDS: METOPROLOL 25 MG TAB PO SCH ×2 (09:27→20:50)
[2016-09-25] MEDS: clonAZEPAM 0.5 MG TAB PO SCH ×3 (09:27→20:46)
[2016-09-25] MEDS: ENOXAPARIN 40 MG/0.4 ML SYG SC SCH (09:29)
--- NOTE | 2016-09-25 14:54 | PN ---
DATE: 09/25/2016 SUBJECTIVE: Patient seen. She appears to be doing better. She is alert, more awake, eating well. Case discussed with nursing staff. I called the patient's brother, Ethan, phone number . I informed him of patient's condition. Patient's, again, repeat blood cultures are negative. I appreciate infectious disease recommendation. I have reviewed antibiotics change as patient is now on Rocephin. Remains on vancomycin, but that can be likely discontinued as well. PHYSICAL EXAMINATION: VITAL SIGNS: Temperature 98.4, pulse 61, respiration 19, blood pressure 98/58, earlier was 136/67, saturation 94% on room air. GENERAL: Patient is in no acute distress. The patient is pale. CARDIOVASCULAR: S1 and S2, regular rate. LUNGS: Clear. ABDOMEN: Soft, nontender. EXTREMITIES: No clubbing, cyanosis, or edema. Again, patient is pale. LABORATORY DATA: White count is low at 3, hemoglobin 9.2, hematocrit 32, platelet count is 102. Th e patient has pancytopenia. Neutrophils 69%, lymphocytes 33%. Chemistry: Sodium 145, potassium 3. 5, chloride 109, bicarbonate 30, BUN is 9, creatinine 0.59, glucose of 78. Occult blood was negativ e. Repeat blood cultures negative. Stool for C. difficile is negative. MRSA screening of the nare s was positive, likely colonization. MEDICATIONS: 1. Rocephin 1 gram q.24h. 2. Bactroban ointment to the nares b.i.d. 3. Vancomycin IV dose per pharmacy. 4. Silvadene cream daily. 5. Lovenox 40 mg subcutaneous daily. 6. Calcium plus D daily. 7. Vitamin D 1000 daily. 8. Vitamin B12 1000 daily. 9. Protonix 40 mg daily. 10. Klonopin 0.5 t.i.d. 11. Colace 100 b.i.d. 12. Neurontin 300 t.i.d. 13. Lopressor 25 b.i.d. 14. Requip 0.25 at bedtime. 15. Zofran p.r.n. 16. Tylenol p.r.n. 17. Ambien p.r.n. 18. Colace p.r.n. 19. Milk of Magnesia p.r.n. 20. Albuterol p.r.n. 21. Burgess p.r.n. ASSESSMENT AND PLAN: This is a 80-year-old [place] female with history of anxiety disorder, hyperte nsion, multiple orthopedic surgeries in the past, gastroesophageal reflux disease, history of brain tumor status post resection many years ago, recent left femur fracture, also arrhythmias with underl nate possible atrial fibrillation, with risk of fall, and anemia, who presented with urinary tract i nfection, pneumonia, and bacteremia. 1. Pneumonia, clinically better. Will follow up with a.m. chest x-ray. Likely will switch to oral quinolone upon discharge to treat both urinary tract infection, pneumonia, and bacteremia. In the m eantime, continue Rocephin. 2. Cardiovascular. Patient with arrhythmia. Continue deep venous thrombosis prophylaxis. Continu e beta blockers. 3. Infectious disease. Patient with urinary tract infection, pneumonia, and bacteremia. Continue above antibiotics. The patient is on Rocephin and vancomycin. Also on Bactroban for methicillin-res istant Staphylococcus aureus colonization. Will follow up with ID recommendations. Likely can be d ischarged with all quinolones to supplements to complete a 2-week course of antibiotics. Again, rama l follow up with a.m. chest x-ray. 4. Patient with pancytopenia. No need for transfusion. Will recommend outpatient hematology evalu ation. Stool occult blood is negative. No active bleeding. 5. Psychiatric. Resume all psychiatry medications. 6. Continue stool softeners, which were placed on hold because of diarrhea. No evidence of Clostri dium difficile colitis. 7. Disposition. Hopefully in the a.m. to assisted living facility. 8. Much improved. Case discussed with the brother, Ethan. We will follow. Dictated By: ALEXANDER ROSADO/LIZ Conf#: [id number] DID#: [id number]
--- NOTE | 2016-09-25 15:40 | RADRPT ---
PROCEDURE: XR Chest. CLINICAL INDICATION: Shortness of breath. TECHNIQUE: Single frontal view. COMPARISON: 09/22/2016. FINDINGS: The right lung is clear. There is left basilar atelectasis or pneumonia, unchanged. The heart is enlarged. There is calcification in the aorta consistent with atherosclerosis. There is no right pleural effusion. There is a small left pleural effusion. There is no pneumothorax. IMPRESSION: 1. Left basilar atelectasis or pneumonia, unchanged. 2. Cardiomegaly and atherosclerosis. 3. Small left pleural effusion. RPTAT: QQ .Nestor Roger MD, MD Date Time Electronically viewed and signed by .Nestor Roger MD, MD on 09/25/2016 15:40 .R/
[2016-09-25] MEDS: CEFTRIAXONE 1 GM/50 ML (PMX) 50 ML IVPB SCH (19:31)
[2016-09-25] MEDS: ZOLPIDEM 5 MG TAB PO PRN (20:45)
[2016-09-25] MEDS: ROPINIROLE 0.25 MG TAB PO SCH (20:46)
--- NOTE | 2016-09-25 20:55 | CONS ---
Date/Time of Note Date/Time of Note DATE: 09/25/16 TIME: 20:45 Assessment/Plan Assessment/Plan Chief Complaint/Hosp Course ID PROGRESS NOTE Vanco IV + Ceftriaxone => Total ABX day # 5 (+)LLL PNA (+)BCx 1/2 E.Coli (+)BCx 1/2 CoNS 24H INTERVAL SUMMARY * Clinically stable, no fever, VSS, NAD * Incontinent w/5 BMs yesterday after given Stool Softeners + Senna for constipation -- today less C.Diff toxin (-) and Zosyn DC'd = highly associated w /ABX diarrhea * CXR 09/26/15: IMPRESSION: 1. Left basilar atelectasis or pneumonia, unchanged. 2. Cardiomegaly and atherosclerosis. 3. Small left pleural effusion. PHYSICAL EXAMINATION: GENERAL: 80 yo F, lethargic, looks comfortable HEENT: Unremarkable -- NECK: Supple, trachea midline. CHEST: Rise symmetrical without dyspnea ABDOMEN: deferred EXTREMITIES: Moves all extremities, Without cyanosis. ID ASSESSMENT: 80-yo Turkish speaking F w/PMHx Depression/anxiety, HTN, GERD, anemia, admit with: 1. Sepsis w/high-grade fevers and (+)GNR/Staph-CoNS Blood Cx on admission: 2. UTI = > URINE CULTURE Final Organism 1 ESCHERICHIA COLI COLONY COUNT 20,000 - 30,000 CFU/ml 3. LLL PNA * 09/22/16 CXR: 1. New left basilar air space disease suggesting left basilar infiltrate and possible underlying effusion. 4. History of left femoral fracture, status post surgery. 5. Loose stools s/p stool softeners + Senna for Constipation. (+) MRSA Nares screen ->Bactroban ALLERGY: None to ABX CURRENT ABX: Vanco IV + Ceftriaxone => Total ABX day # 5 s/p Zosyn ID PLAN: 1. Continue Ceftriaxone x total 14 days to cover GNR E.Coli septicemia/UTI 2. Continue Vanco IV for now to cover concern HCAP, MRSA decolonization 3. Will not Rx empiric Flagy nor Vanco PO due to diarrhea was likely a result of stool softeners + senna which have been stopped 4. Bactroban onboard for MRSA nares colonization . Problems: Consultation Date/Type/Reason Admit Date/Time Sep 22, 2016 at 12:58 Type of Consultation: ID Exam/Review of Systems Vital Signs Vitals Vital Signs Date Time Temp Pulse Resp B/P Pulse Ox O2 Delivery O2 Flow Rate FiO2 09/25/16 17:01 98.2 61 19 139/81 95 09/22/16 13:00 Room Air 09/22/16 12:43 3.0 Intake and Output 09/24/16 09/24/16 09/25/16 15:00 23:00 07:00 Intake Total 500 ml 400 ml Output Total 600 ml 1300 ml Balance -100 ml -900 ml Results Result Diagram: 09/25/16 0607 09/25/16 0607 Results 24 hrs Laboratory Tests Test 09/25/16 06:07 09/25/16 19:15 Anion Gap 10 Basophils # 0.0 Basophils % 0.3 Blood Urea Nitrogen 9 Calcium Level 8.1 L Carbon Dioxide Level 30 Chloride Level 109 Creatinine 0.59 Eosinophils # 0.0 Eosinophils % 1.4 Glucose Level 78 Hematocrit 31.8 L Hemoglobin 9.2 L Lymphocytes # 1.0 Lymphocytes % 33.2 Magnesium Level 2.1 Mean Corpuscular Hemoglobin 31.9 Mean Corpuscular Hemoglobin Concent 28.9 L Mean Corpuscular Volume 110.4 H Mean Platelet Volume 10.2 Monocytes # 0.2 L Monocytes % 6.1 Neutrophils # 1.7 Neutrophils % 58.7 Nucleated Red Blood Cells # 0.0 Nucleated Red Blood Cells % 0.0 Phosphorus Level 3.8 Platelet Count 102 L Potassium Level 3.5 Red Blood Count 2.88 L Red Cell Distribution Width 17.4 H Sodium Level 145 H White Blood Count 3.0 #L Vancomycin Level Trough 16.6 Medications Medications Current Medications Ondansetron HCl (Zofran Inj) 4 mg Q6H PRN IV NAUSEA AND/OR VOMITING; Start 09/22 at 14:30 Acetaminophen (Tylenol Tab) 650 mg Q6H PRN PO PAIN LEVEL 1-3 OR FEVER; Start at 14:30 Zolpidem Tartrate (Ambien) 5 mg QHS PRN PO INSOMNIA Last administered on t 20:56; Admin Dose 5 MG; Start 09/22/16 at 14:30 Docusate Sodium (Colace) 100 mg Q12H PRN PO CONSTIPATION; Start 09/22/16 at 14: 30 Magnesium Hydroxide (Milk Of Mag) 30 ml DAILY PRN PO CONSTIPATION; Start at 14:30 Pantoprazole (Protonix Tab) 40 mg DAILY@06 PO Last administered on 09/25/16 06 :08; Admin Dose 40 MG; Start 09/23/16 at 06:00 Enoxaparin Sodium (Lovenox) 40 mg DAILY SC Last administered on 09/25/16 09:29 ; Admin Dose 40 MG; Start 09/23/16 at 09:00 Calcium/Vitamin D (Oyster Shell/ Vit-D (500/200)) 1 tab DAILY PO Last administered on 09/25/16 09:26; Admin Dose 1 TAB; Start 09/23/16 at 09:00 Cholecalciferol (Vitamin D) 1,000 unit DAILY PO Last administered on 09/25/16 09:27; Admin Dose 1,000 UNIT; Start 09/23/16 at 09:00 Clonazepam (Klonopin) 0.5 mg TID PO Last administered on 09/25/16 12:47; Admin Dose 0.5 MG; Start 09/22/16 at 21:00 Cyanocobalamin (Vitamin B12) 1,000 mcg DAILY PO Last administered on 09/25/16 09:27; Admin Dose 1,000 MCG; Start 09/23/16 at 09:00 Docusate Sodium (Colace) 100 mg BID PO Last administered on 09/25/16 09:26; Admin Dose 100 MG; Start 09/22/16 at 21:00 Gabapentin (Neurontin) 300 mg TID PO Last administered on 09/25/16 12:47; Admin Dose 300 MG; Start 09/22/16 at 21:00 Acetaminophen/ Hydrocodone Bitart ([place] (5/325)) 1 tab Q6 PRN PO SEVERE PAIN LEVEL 7-10 Last administered on 09/25/16 10:34; Admin Dose 1 TAB; Start at 14:30 Metoprolol Tartrate (Lopressor) 25 mg BID PO Last administered on 09/25/16 09: 27; Admin Dose 25 MG; Start 09/22/16 at 21:00 Ropinirole HCl (Requip) 0.25 mg QHS PO Last administered on 09/24/16 20:48; Admin Dose 0.25 MG; Start 09/22/16 at 21:00 Silver Sulfadiazine 1 applic 1 applic DAILY TOP Last administered on 09/25/16 09:26; Admin Dose 1 APPLIC; Start 09/23/16 at 13:00 Vancomycin HCl (Vancocin) 250 ml @ 125 mls/hr Q12H IVPB Last administered on 08:28; Admin Dose 125 MLS/HR; Start 09/24/16 at 08:00 Mupirocin 1 applic 1 applic BID TOP Last administered on 09/25/16 09:26; Admin Dose 1 APPLIC; Start 09/24/16 at 11:30 Ceftriaxone Sodium (Rocephin) 50 ml @ 100 mls/hr Q24H IVPB Last administered on 09/25/16 19:31; Admin Dose 100 MLS/HR; Start 09/24/16 at 20:00 URIAH LOO NP Sep 25, 2016 20:55
[2016-09-26] VITALS (8 sets, daily range): BP systolic 107–130; BP diastolic 60–68; PULSE 50–70; RESP 18
[2016-09-26] MEDS: HYDROCODONE/APAP (5/325) TAB PO PRN ×2 (00:09→10:36)
[2016-09-26] MEDS: PANTOPRAZOLE (EC) 40 MG TAB PO SCH (05:50)
[2016-09-26 08:36] LABS: ADD SCAN DIFF NO
[2016-09-26 08:41] LABS: BASOPHILS % 0.3 % (0.0-2.0); EOSINOPHILS % 0.7 % (0.0-7.0); LYMPHOCYTES # 1.5 10^3/ul (0.8-2.9); LYMPHOCYTES % 50.9 % (15.0-51.0); MEAN CORPUSCULAR HEMOGLOBIN 33.4 pg (29.0-33.0); MEAN CORPUSCULAR HGB CONC 30.3 g/dl (32.0-37.0); MEAN CORPUSCULAR VOLUME 110.4 fl (82.0-101.0); MEAN PLATELET VOLUME 10.8 fl (7.4-10.4); MONOCYTE # 0.3 10^3/ul (0.3-0.9); MONOCYTES % 9.9 % (0.0-11.0); NEUTROPHIL # 1.1 10^3/ul (1.6-7.5); NEUTROPHILS % 37.5 % (39.0-77.0); PLATELET COUNT 124 10^3/UL (140-415); RED BLOOD COUNT 2.99 10^6/ul (4.20-5.40); RED CELL DISTRIBUTION WIDTH 17.2 % (11.5-14.5); WHITE BLOOD COUNT 2.9 10^3/ul (4.8-10.8)
[2016-09-26] MEDS: MUPIROCIN 2% 22 GM OINT TOP SCH (09:00)
[2016-09-26 09:03] LABS: POTASSIUM 3.1 mmol/L (3.5-5.1)
[2016-09-26 09:06] LABS: CREATININE 0.6 mg/dl (0.44-1.00)
[2016-09-26] MEDS ORDERED: POTASSIUM CHLORIDE (SR) 20 MEQ TAB PO STA (09:56)
[2016-09-26] MEDS: DOCUSATE SODIUM 100 MG CAP PO SCH (09:56)
[2016-09-26] MEDS: clonAZEPAM 0.5 MG TAB PO SCH ×2 (09:56→13:27)
[2016-09-26] MEDS: CHOLECALCIFEROL 1,000 UNIT TAB PO SCH (09:56)
[2016-09-26] MEDS: GABAPENTIN 300 MG CAP PO SCH ×2 (09:56→13:27)
[2016-09-26] MEDS: CALCIUM/VITAMIN D (500/200) TAB PO SCH (09:56)
[2016-09-26] MEDS: CYANOCOBALAMIN 500 MCG TAB PO SCH (09:56)
[2016-09-26] MEDS: SILVER SULFADIAZINE 1% 25 GM CR TOP SCH (09:57)
[2016-09-26] MEDS: METOPROLOL 25 MG TAB PO SCH (09:57)
[2016-09-26] MEDS: ENOXAPARIN 40 MG/0.4 ML SYG SC SCH (10:01)
[2016-09-26 10:02] LABS: MAGNESIUM 2.2 mg/dl (1.7-2.5); PHOSPHORUS 3.8 mg/dl (2.5-4.9)
[2016-09-26] MEDS: VANCOMYCIN 1 GM in NS 250 ML IVPB SCH (10:37)
--- NOTE | 2016-09-26 13:18 | PN ---
DATE: 09/26/2016 SUBJECTIVE: No acute changes overnight. The patient is lying comfortably in bed. She is awake. D enies pain, no fevers. LABORATORIES: WBC 2.9, platelets 124, no bands. BUN 9, creatinine 0.60. MICROBIOLOGY: Blood culture on admission grew E. coli and coagulase-negative staph species 1 out of 2 sets. Urine culture grew E. coli. Nares swab came back positive for MRSA. Repeat blood culture s negative. Stool for C. diff came back negative. ANTIMICROBIALS: The patient is on: 1. IV vancomycin. 2. Rocephin. 3. Topical Bactroban to nares. DIAGNOSTICS: Chest x-ray yesterday revealed left basilar atelectasis or pneumonia, unchanged. PHYSICAL EXAMINATION: GENERAL: This is a fragile, elderly woman who is awake, in no distress. HEENT: Head atraumatic, normocephalic. Sclerae anicteric. Buccal mucosa dry. NECK: Supple, trachea midline. CHEST: Rise symmetrical. Breath sounds diminished to bases. HEART: S1, S2. ABDOMEN: Soft, bowel tones present. EXTREMITIES: Without cyanosis. ASSESSMENT: 1. Sepsis with bacteremia secondary to #2. 2. Escherichia coli urinary tract infection. 3. Healthcare-associated pneumonia. 4. Methicillin-resistant Staphylococcus aureus nares colonization. 5. Anemia. 6. History of left femoral fracture status post surgery. PLAN: The patient remains stable on antibiotics, day #6. She is also getting Bactroban to nares. Continue present care, anti-aspiration measures. Rocephin until 10/07/2016 to complete treatment fo r bacteremia. Dictated By: JASON RODRIGUEZ [employer] SALES CONSULTANT for JOHN LOPES/LIZ Conf#: [id number] DID#: [id number]
--- NOTE | 2016-09-26 14:05 | PDOCDIS ---
Discharge Instructions CONDITION Patient Condition: Stable HOME CARE INSTRUCTIONS: Special Diet: MECHANICAL SOFT ACTIVITY: Activity Restrictions: Slowly Increase Activity FOLLOW UP/APPOINTMENTS Appointments discharge to [facility] assisted living with ambulance, see attached prescriptions, follow up with PMD within 1 week. ALEXANDER LAMB MD Sep 26, 2016 14:04
[2016-09-26] MEDS ORDERED: LEVO500T72 PO (14:11)
[2016-09-26] MEDS ORDERED: FER325 PO (14:17)
[2016-09-26] MEDS ORDERED: ASPI-664 PO (14:17)
--- NOTE | 2016-09-26 16:22 | DS ---
DATE OF ADMISSION: 09/22/2016 DATE OF DISCHARGE: 09/26/2016 REASON FOR ADMISSION: Urinary tract infection, pneumonia, fevers, sepsis. HOSPITAL COURSE: The patient is a 80-year-old [place]ian female, with history of hypertension, depress ion, gastroesophageal reflux disease, anxiety, anemia, history of left femur fracture status post baumann rgery, history of constipation, who currently resides at [facility]. The patient was in usual state of health up until prior to admission when she was noted to be more w eak with fevers. She was transferred to [facility] for evaluation. Patient had e xtensive workup. Chest x-ray revealed left basilar airspace disease suggestive of left basilar infi ltrates. In addition, UA was remarkably positive with evidence of UTI. It was decided to admit the patient for further care. Upon admission, the patient was started on broad-spectrum antibiotic with Zosyn and vancomycin. Cultures revealed bacteremia. Blood culture 1 bottle showed E. coli pansens itive. Blood culture also the second bottle shows coagulase negative Staph, likely contamination. Urine culture showed E. coli as well. This is likely the source of her infection. Antibiotics were then switched to Rocephin. Vancomycin was continued during her hospital stay as she had positive MR SA of the nares, which is also likely colonization. We started her on Bactroban ointment to the daniela es as well. Stool for C. diff was negative. Patient had diarrhea, so we stopped her stool softener s. The patient continues to improve as initially she was very weak and confused. Patient's appetit e improved, and now she is eating well. Repeat blood cultures were obtained, and they are negative. Vital signs are stable. Temperature 97.6, pulse 58, respirations 18, blood pressure 130/60, satur ation 94% on room air. The patient does have anemia and mild pancytopenia with a white count of 2.9 , hemoglobin 10, hematocrit 33, and platelet count of 124. Patient likely would benefit from follow up with hematology to evaluate for pancytopenia; otherwise, the patient is stable for discharge. Fo buddy will be removed. The patient will be discharged to the assisted living facility with oral Levaq uin, which has good blood penetration. Case discussed with , infectious disease specialist. P atient will complete a 14-day course of antibiotics. DISCHARGE MEDICATIONS: Patient will be discharged with the following medications: 1. Metoprolol 25 b.i.d. 2. Clonazepam 0.5 t.i.d. 3. Neurontin 300 t.i.d. 4. Requip 0.25 nightly. 5. Calcium plus D 1 tab b.i.d. 6. Levaquin 500 mg daily for 10 days. 7. Aspirin 81 mg daily as patient has history of atrial fibrillation 8. Ferrous sulfate 325 daily. 9. Bactroban ointment to the nares for 10 days. 10. Multivitamin 1 tab daily. 11. Ambien 5 mg at bedtime p.r.n. for insomnia. Home health for physical therapy and monitoring post-hospitalization. FINAL DIAGNOSES: 1. Sepsis. 2. Urinary tract infection. 3. Pneumonia. Repeat chest x-ray shows atelectasis or slight infiltrate on the left. 4. Bacteremia, organism Escherichia coli. 5. Anemia of chronic disease. 6. History of iron deficiency anemia. 7. Pancytopenia. 8. Mild dementia. 9. Psychiatric disorder. 10. Anxiety disorder. 11. Underlying rhythm of atrial fibrillation. 12. Hypertension. 13. History of left hip fracture, status post . 14. Gastroesophageal reflux disease. 15. Chronic pain. 16. History of mild elevation of CEA. Again, GI workup will be beneficial as well. Stool occult b lood negative. Any change in condition, to call 911 or go to nearest emergency department. Case dis cussed with the brother, Ethan, phone number [phone], on routine basis. He is aware of plan of care and discharge planning. Again, he wanted me to send her back to [facility]. He did not want me to send her to a long term. She looks quite okay. Hopefully, she will be okay with home health supervision. DIET: Soft mechanical, low salt diet, no added salt. Any change in condition to call 911 or go to nearest emergency department. Dictated By: ALEXANDER ROSADO/LIZ Conf#: [id number] DID#: [id number]
[2016-09-26] MEDS ORDERED: VANCOMYCIN 750 MG in SOD CHLORIDE 0.9% 150 ML IVPB SCH (23:00)
== END 2016-09-26 19:40 | disposition home or self-care (01) | DRG 871 ==
LOC: E/R 08:08 → MS4 12:58
PROVIDERS: ADMIT Internal Medicine; ATTEND Internal Medicine
DX: A41.51 Sepsis due to Escherichia coli [E. coli] (principal); J18.9 Pneumonia, unspecified organism; D61.818 Other pancytopenia; E44.0 Moderate protein-calorie malnutrition; N39.0 Urinary tract infection, site not specified; F03.90 Unspecified dementia, unspecified severity, without behavioral disturbance, psychotic disturbance, mood disturbance, and anxiety; A41.1 Sepsis due to other specified staphylococcus; I48.91 Unspecified atrial fibrillation; A49.8 Other bacterial infections of unspecified site; D50.9 Iron deficiency anemia, unspecified; F41.9 Anxiety disorder, unspecified; I10 Essential (primary) hypertension; K21.9 Gastro-esophageal reflux disease without esophagitis; G89.29 Other chronic pain; Z68.22 Body mass index [BMI] 22.0-22.9, adult
CPT/HCPCS: 71010; 80048; 80053; 80202; 81001; 81003; 82270; 83605; 83615; 83735; 84100; 84443; 84484; 85025; 85610; 85730; 87040; 87075; 87081; 87086; 92526; 92610; 93005; 97163; J0696; J1650; J2543; J3370; J7030

== ENCOUNTER 2016-09-29 19:02 | Inpatient (IN) | payer MEDICARE, BC ==
[~2016-09-29] VITALS: Ht 154.9 cm; Wt 63.1 kg
[~2016-09-29 19:02] MED LIST changes: -ASC500 PO; +ASPI-664 PO; -ASPI81TA3 PO; -CHOL10009 PO; -DOCU100C PO; +LEVO500T72 PO; -POLY17PO3 PO; -SENN-53 PO; +ZOLP5TAB6 PO
[2016-09-29] MEDS ORDERED: SOD CHLORIDE 0.9% 1,000 ML IV STA (20:05)
[2016-09-29] MEDS ORDERED: VANCOMYCIN 1 GM (PMX) 250 ML IVPB STA (20:05)
[2016-09-29] MEDS ORDERED: CEFEPIME 1GM/50 ML (PMX) 50 ML IVPB STA (20:05)
--- NOTE | 2016-09-29 20:45 | RADRPT ---
PROCEDURE: Chest x-ray CLINICAL INDICATION: Shortness of breath TECHNIQUE: Chest single view COMPARISON: 09/25/2069 FINDINGS: 07 slightly limited due to rotation. There is stable cardiomegaly and an sclerotic aortic calcifica tion. Pulmonary vessels are normal in caliber. There is persistent mild left basilar atelectasis v ersus pneumonia. Suspect trace left pleural effusion. The overall appearance is unchanged. Right lung is clear. Right costophrenic angle sharp. Bones are osteopenic IMPRESSION: 1. Persistent left lower lobe atelectasis/infiltrate with trace left pleural effusion. 2. No new infiltrates. 3. Stable mild cardiomegaly and an sclerotic aortic calcification. 4. Osteopenia RPTAT: HH .Tunde Grant MD, Date Time Electronically viewed and signed by .Tunde Grant MD, on 09/29/2016 20:45 .W/
[2016-09-29] MEDS ORDERED: AMIO200T2 PO (20:47)
[2016-09-29] MEDS ORDERED: DIGO125T PO (20:48)
[2016-09-29 20:54] LABS: ADD SCAN DIFF NO
[2016-09-29 20:56] LABS: BASOPHILS % 0.3 % (0.0-2.0); EOSINOPHILS % 1.1 % (0.0-7.0); HEMOGLOBIN 9.5 g/dl (12.0-16.0); LYMPHOCYTES # 1.5 10^3/ul (0.8-2.9); LYMPHOCYTES % 41.4 % (15.0-51.0); MEAN CORPUSCULAR HEMOGLOBIN 32.9 pg (29.0-33.0); MEAN CORPUSCULAR HGB CONC 30.6 g/dl (32.0-37.0); MEAN CORPUSCULAR VOLUME 107.3 fl (82.0-101.0); MEAN PLATELET VOLUME 9.8 fl (7.4-10.4); MONOCYTE # 0.1 10^3/ul (0.3-0.9); MONOCYTES % 3.8 % (0.0-11.0); NEUTROPHIL # 1.9 10^3/ul (1.6-7.5); NEUTROPHILS % 53.1 % (39.0-77.0); PLATELET COUNT 198 10^3/UL (140-415); RED BLOOD COUNT 2.89 10^6/ul (4.20-5.40); RED CELL DISTRIBUTION WIDTH 16.6 % (11.5-14.5); WHITE BLOOD COUNT 3.7 10^3/ul (4.8-10.8)
[2016-09-29 21:13] LABS: ALBUMIN 2.7 g/dl (3.3-4.9)
[2016-09-29 21:14] LABS: CHLORIDE 106 mmol/L (97-110); POTASSIUM 3.4 mmol/L (3.5-5.1); SODIUM 147 mmol/L (135-144)
[2016-09-29 21:16] LABS: ANION GAP 12 (8-16); ASPARTATE AMINO TRANSFERASE 40 IU/L (15-46); BILIRUBIN,INDIRECT 0.1 mg/dl (0-1.1); BILIRUBIN,TOTAL 0.1 mg/dl (0.2-1.3); CARBON DIOXIDE 32 mmol/L (21-31); CREATININE 0.54 mg/dl (0.44-1.00)
[2016-09-29 21:17] LABS: ALANINE AMINOTRANSFERASE 16 IU/L (13-69); ALBUMIN/GLOBULIN RATIO 0.77; ALKALINE PHOSPHATASE 93 IU/L (42-121); BLOOD UREA NITROGEN 7 mg/dl (7-20); CALCIUM 8.4 mg/dl (8.4-10.2); GLUCOSE 85 mg/dl (70-220); TOTAL PROTEIN 6.2 g/dl (6.1-8.1)
[2016-09-29 21:22] LABS: B-TYPE NATRIURETIC PEPTIDE 1490 PG/ML (0-450)
[2016-09-29 21:27] LABS: TROPONIN-I < 0.012 ng/ml (0.00-0.12)
--- NOTE | 2016-09-29 22:47 | ERA ---
ER Documentation Chief Complaint Date/Time DATE: 09/29/16 TIME: 22:43 Chief Complaint chest congestion,BIBA from [facility] This 80-year-old female sent from long-term for chest congestion and cough. There is limited history given from EMS. The patient is awake and alert but has a baseline history of some mild dementia. She is not in respiratory distress and has no complaints other than she is cold. She says she has had a cough but does not know the duration or if she is having sputum production. She is currently not having any shortness of breath or vomiting diarrhea ROS All systems reviewed and are negative except as per history of present illness. Medications Home Meds Active Scripts Aspirin* (Aspirin* EC) 81 Mg Tablet.dr, 81 MG PO DAILY for 30 Days, TAB Prov:ALEXANDER AGUILAR MD 09/26/16 Ferrous Sulfate* (Ferrous Sulfate*) 325 Mg Tabec, 325 MG PO DAILY, #30 TAB Prov:ALEXANDER AGUILAR MD 09/26/16 Reported Medications Digoxin* (Digitek*) 125 Mcg Tablet, 0.125 MG PO DAILY, TAB 09/29/16 Amiodarone Hcl* (Amiodarone Hcl*) 200 Mg Tablet, 200 MG PO DAILY, #30 TAB 09/29/16 Gabapentin* (Gabapentin*) 300 Mg Capsule, 300 MG PO TID, #90 CAP 09/22/16 Clonazepam* (Clonazepam*) 0.5 Mg Tablet, 0.5 MG PO TID, TAB 06/03/16 Ropinirole Hcl* (Ropinirole Hcl*) 0.25 Mg Tablet, 0.25 MG PO QHS, TAB 06/03/16 Metoprolol Tartrate* (Lopressor*) 25 Mg Tab, 25 MG PO BID, #60 TAB 06/03/16 Calcium Carbonate/Vitamin D3 (Oyster Shell Calcium + D Cplt) 1 Each Tablet, 1 EACH PO BID, TAB 06/03/16 Multivitamin (Multi-Day Vitamins) 1 Each Tablet, 1 EACH PO DAILY, TAB 06/03/16 Discontinued Reported Medications Zolpidem Tartrate* (Zolpidem Tartrate*) 5 Mg Tablet, 5 MG PO QHS Y for INSOMNIA , #30 TAB 09/22/16 Acetaminophen* (Acetaminophen*) 325 Mg Tablet, 650 MG PO Q6 Y for PAIN AND OR ELEVATED TEMP, #30 TAB 06/03/16 Cyanocobalamin* (Vitamin B-12*) 1,000 Mcg Tablet.sa, 1000 MCG PO WEEKLY, TAB 09/22/16 Ondansetron Hcl* (Ondansetron Hcl*) 4 Mg Tablet, 4 MG PO Q6H Y for NAUSEA AND/ OR VOMITING, TAB 09/22/16 Hydrocodone/Acetaminophen (Pavo 5-325 Tablet) 1 Each Tablet, 1 EACH PO Q6 Y for SEVERE PAIN LEVEL 7-10, TAB 09/22/16 Docusate Sodium (Doc-Q-Lace) 100 Mg Capsule, 100 MG PO BID, CAP 06/03/16 Cholecalciferol (Vitamin D3) 1,000 Unit Capsule, 1000 UNIT PO DAILY, CAP 06/03/16 Sennosides* (Senna Lax*) 8.6 Mg Tablet, 2 TAB PO DAILY, TAB 06/03/16 Polyethylene Glycol* (Polyethylene Glycol*) 17 Gm Powd.pack, 17 GM PO BID, #60 PACKET 06/03/16 Gabapentin* (Gabapentin*) 300 Mg Capsule, 300 MG PO TID, #90 CAP 06/03/16 Ferrous Sulfate* (Ferrous Sulfate*) 325 Mg Tabec, 325 MG PO DAILY, TAB 06/03/16 Aspirin* (Aspirin* Chew) 81 Mg Tab.chew, 81 MG PO DAILY, TAB.CHEW 06/03/16 Ascorbic Acid (Vitamin C) 500 Mg Tab, 500 MG PO DAILY, TAB 06/03/16 Discontinued Scripts Levofloxacin* (Levaquin*) 500 Mg Tablet, 500 MG PO DAILY for 10 Days, TAB Prov:ALEXANDER AGUILAR MD 09/26/16 Allergies Allergies: Coded Allergies: morphine (Verified Allergy, Unknown, 09/29/16) PMhx/Soc History of Surgery: Yes (L femur hardware ) Anesthesia Reaction: No Hx Neurological Disorder: Yes (dementia hx ) Hx Respiratory Disorders: No Hx Psychiatric Problems: Yes (Anxiety, depression ) Hx Miscellaneous Medical Probl: Yes (depression,GERD,anxiety,hnt, anemia, L felmur fracture/sp ORIF) Hx Alcohol Use: No Hx Substance Use: No Hx Tobacco Use: No Smoking Status: Unknown if ever smoked FmHx Family History: No coronary disease Physical Exam Vitals Vital Signs Date Time Temp Pulse Resp B/P Pulse Ox O2 Delivery O2 Flow Rate FiO2 09/29/16 20:05 75 18 153/95 91 Room Air 09/29/16 19:44 98.7 75 18 180/88 92 Physical Exam Const: Well-developed, well-nourished Head: Atraumatic, normocephalic Eyes: Normal Conjunctiva, PERRLA, EOMI, normal sclera, no nystagmus ENT: Normal External Ears, Nose and Mouth, moist mucus membranes. Neck: Full range of motion. No meningismus, no lymphadenopathy. Resp: No increased work of breathing scattered mild rhonchi decreased left base sounds] Cardio: Regular rate and rhythm, no murmurs, S1 S2 present Abd: Soft, non tender x 4, non distended. Normal bowel sounds, no guarding or rebound, no pulsitile abdominal masses or bruits Skin: No petechiae or rashes, no ecchymosis , no maculopapular rash Back: No midline or flank tenderness Ext: No cyanosis, or edema, FROM x 4, normal inspection, neurovascularly intact x 4 Neur: Awake and alert, STR 5/5 x 4, sensation intact x 4, no focal findings, cerebellum intact Psych: Normal Mood and Affect Result Diagram: 09/29/16201409/29/162014 Results 24 hrs Laboratory Tests Test 09/29/16 20:15 09/29/16 21:58 Alanine Aminotransferase (ALT/SGPT) 16IU/L Albumin 2.7g/dl Albumin/Globulin Ratio 0.77 Alkaline Phosphatase 93IU/L Anion Gap 12 Aspartate Amino Transf (AST/SGOT) 40IU/L B-Type Natriuretic Peptide 1490PG/ML Basophils # 0.010^3/ul Basophils % 0.3% Blood Urea Nitrogen 7mg/dl Calcium Level 8.4mg/dl Carbon Dioxide Level 32mmol/L Chloride Level 106mmol/L Creatinine 0.54mg/dl Direct Bilirubin 0.00mg/dl Eosinophils # 0.010^3/ul Eosinophils % 1.1% Globulin 3.50g/dl Glucose Level 85mg/dl Hematocrit 31.0% Hemoglobin 9.5g/dl Indirect Bilirubin 0.1mg/dl Lactic Acid Level 1.4mmol/L 1.2mmol/L Lymphocytes # 1.510^3/ul Lymphocytes % 41.4% Mean Corpuscular Hemoglobin 32.9pg Mean Corpuscular Hemoglobin Concent 30.6g/dl Mean Corpuscular Volume 107.3fl Mean Platelet Volume 9.8fl Monocytes # 0.110^3/ul Monocytes % 3.8% Neutrophils # 1.910^3/ul Neutrophils % 53.1% Nucleated Red Blood Cells # 0.010^3/ul Nucleated Red Blood Cells % 0.0/100WBC Platelet Count 51026^3/UL Potassium Level 3.4mmol/L Red Blood Count 2.8910^6/ul Red Cell Distribution Width 16.6% Sodium Level 147mmol/L Total Bilirubin 0.1mg/dl Total Protein 6.2g/dl Troponin I < 0.012ng/ml White Blood Count 3.710^3/ul Current Medications Medications (Trade) Dose Ordered Sig/Yodit Route PRN Reason Start Time Stop Time Status Last Admin Dose Admin Sodium Chloride 1,000 ml @ 1,000 mls/hr Q1H STAT IV 09/29/16 20:05 09/29/16 21:04 DC 09/29/16 20:50 Cefepime HCl 50 ml @ 100 mls/hr ONCE STAT IVPB 09/29/16 20:05 09/29/16 20:34 DC 09/29/16 20:51 Vancomycin HCl (Vancocin) 250 ml @ 125 mls/hr ONCE STAT IVPB 09/29/16 20:05 09/29/16 22:04 DC 09/29/16 21:19 Procedures/MDM PROCEDURE: Chest x-ray CLINICAL INDICATION: Shortness of breath TECHNIQUE: Chest single view COMPARISON: 09/25/2069 FINDINGS: 07 slightly limited due to rotation. There is stable cardiomegaly and an sclerotic aortic calcification. Pulmonary vessels are normal in caliber. There is persistent mild left basilar atelectasis versus pneumonia. Suspect trace left pleural effusion. The overall appearance is unchanged. Right lung is clear. Right costophrenic angle sharp. Bones are osteopenic IMPRESSION: 1. Persistent left lower lobe atelectasis/infiltrate with trace left pleural effusion. 2. No new infiltrates. 3. Stable mild cardiomegaly and an sclerotic aortic calcification. 4. Osteopenia RPTAT: HH .Tunde Juanita, MD, Date Time Electronically viewed and signed by .Tunde Grant MD, on 09/29/2016 20:45 .W/ CC: TERRI PRICE DO Patient has normal lactate levels. Does have a left base infiltrate that appears to be chronic. She is not in any respiratory distress however will admit for IV antibiotics. I paged Dr. Aguilar will admit to the hospital She is not septic. Departure Diagnosis: Primary Impression: Left lower lobe pneumonia Qualified Code: J18.9 - Pneumonia of left lower lobe due to infectious organism Condition: Stable TERRI PRICE DO Sep 29, 2016 22:47
[2016-09-29] MEDS ORDERED: SOD CHLORIDE 0.9% 1,000 ML IV SCH (22:49)
[2016-09-29] MEDS ORDERED: ONDANSETRON 4 MG INJ IV PRN ×2 (23:00)
[2016-09-29] MEDS ORDERED: VANCOMYCIN IV PER PHARMACY XX SCH (23:00)
[2016-09-29] MEDS ORDERED: morphine 2 MG INJ IV PRN (23:00)
[2016-09-29] MEDS ORDERED: ACETAMINOPHEN 325 MG TAB PO PRN (23:00)
[2016-09-29] MEDS ORDERED: MAGNESIUM HYDROXIDE 30ML CUP PO PRN (23:00)
[2016-09-29] MEDS ORDERED: DOCUSATE SODIUM 100 MG CAP PO PRN (23:00)
[2016-09-29] MEDS ORDERED: ALBUTEROL/IPRATROPIUM (NEB) 3 ML AMP NEB PRN (23:00)
[2016-09-29] MEDS ORDERED: NACL 0.9% 3 ML SYG IV SCH (23:00)
[2016-09-30 00:53] VITALS: Ht 154.9 cm; Wt 63.1 kg
[2016-09-30 01:00] VITALS: BP 163/84; PULSE 72; RESP 19
[2016-09-30] MEDS: ALBUTEROL/IPRATROPIUM (NEB) 3 ML AMP NEB SCH ×6 (01:00→20:34)
[2016-09-30] MEDS: PANTOPRAZOLE (EC) 40 MG TAB PO SCH (05:32)
[2016-09-30 05:54] VITALS: BP 120/66; PULSE 76
[2016-09-30 06:02] LABS: ADD SCAN DIFF NO
[2016-09-30 06:12] LABS: BASOPHILS % 0.3 % (0.0-2.0); EOSINOPHILS # 0.1 10^3/ul (0.0-0.5); EOSINOPHILS % 1.6 % (0.0-7.0); HEMATOCRIT 28.5 % (37.0-47.0); HEMOGLOBIN 8.5 g/dl (12.0-16.0); LYMPHOCYTES # 1.6 10^3/ul (0.8-2.9); MEAN CORPUSCULAR HEMOGLOBIN 32.2 pg (29.0-33.0); MEAN CORPUSCULAR HGB CONC 29.8 g/dl (32.0-37.0); MEAN PLATELET VOLUME 9.7 fl (7.4-10.4); MONOCYTE # 0.2 10^3/ul (0.3-0.9); MONOCYTES % 4.8 % (0.0-11.0); NEUTROPHIL # 1.3 10^3/ul (1.6-7.5); NEUTROPHILS % 41.4 % (39.0-77.0); PLATELET COUNT 159 10^3/UL (140-415); RED BLOOD COUNT 2.64 10^6/ul (4.20-5.40); RED CELL DISTRIBUTION WIDTH 16.9 % (11.5-14.5); WHITE BLOOD COUNT 3.1 10^3/ul (4.8-10.8)
[2016-09-30 06:21] LABS: LYMPHOCYTES % 51.6 % (15.0-51.0)
[2016-09-30 06:49] LABS: ALBUMIN 2.4 g/dl (3.3-4.9)
[2016-09-30 06:51] LABS: CREATININE 0.49 mg/dl (0.44-1.00)
[2016-09-30 06:52] LABS: ALBUMIN/GLOBULIN RATIO 0.77; CALCIUM 7.9 mg/dl (8.4-10.2); PHOSPHORUS 3.1 mg/dl (2.5-4.9); TOTAL PROTEIN 5.5 g/dl (6.1-8.1)
[2016-09-30 06:53] LABS: MAGNESIUM 2.1 mg/dl (1.7-2.5)
[2016-09-30 07:23] LABS: POTASSIUM 2.7 mmol/L (3.5-5.1)
[2016-09-30 07:45] VITALS: BP 131/72; RESP 18
[2016-09-30] MEDS: CALCIUM/VITAMIN D (500/200) TAB PO SCH ×2 (08:28→20:42)
[2016-09-30] MEDS: clonAZEPAM 0.5 MG TAB PO SCH ×3 (08:28→20:42)
[2016-09-30] MEDS: MULTIVITAMINS THERAPEUTIC TAB PO SCH (08:28)
[2016-09-30] MEDS: ASPIRIN (EC) 81 MG TAB PO SCH (08:28)
[2016-09-30] MEDS: METOPROLOL 25 MG TAB PO SCH ×2 (08:29→20:42)
[2016-09-30] MEDS: GABAPENTIN 300 MG CAP PO SCH ×3 (08:29→20:41)
[2016-09-30] MEDS: ENOXAPARIN 40 MG/0.4 ML SYG SC SCH (08:30)
[2016-09-30] MEDS: VANCOMYCIN 1 GM in NS 250 ML IVPB SCH ×2 (08:30→22:10)
[2016-09-30] MEDS ORDERED: AMIODARONE 200 MG TAB PO SCH (09:00)
[2016-09-30] MEDS ORDERED: POTASSIUM CHLORIDE 250 ML IVPB ONE (09:00)
[2016-09-30] MEDS ORDERED: DIGOXIN 0.125 MG TAB PO SCH (09:00)
[2016-09-30] MEDS: CEFEPIME 2GM/50 ML (PMX) 50 ML IV SCH ×2 (11:20→20:41)
[2016-09-30] MEDS: ACETAMINOPHEN 325 MG TAB PO PRN ×2 (11:20→18:11)
[2016-09-30] MEDS ORDERED: POTASSIUM CHLORIDE (SR) 20 MEQ TAB PO STA (16:44)
[2016-09-30] MEDS ORDERED: POTASSIUM CHLORIDE 20 MEQ POWDER FOR ORAL SOLN PO ONE (17:00)
[2016-09-30] MEDS ORDERED: FUROSEMIDE 40 MG INJ IV ONE (18:00)
--- NOTE | 2016-09-30 18:36 | CONS ---
DATE OF ADMISSION: 09/29/2016 DATE OF CONSULTATION: 09/30/2016 TYPE OF CONSULTATION: Cardiology. REFERRING PHYSICIAN: Radames Aguilar MD REASON FOR CONSULTATION: History of atrial fibrillation and congestion. Rule out congestive heart failure. CHIEF COMPLAINT: Cough, shortness of breath and congestion. HISTORY OF PRESENT ILLNESS: Thank you for this referral. History obtained from the patient who is an extremely poor historian, discussion with Dr. Aguilar, who provided most of the history, review of the old chart. This is a pleasant 80-year-old female who lives in a usp who was brought ba because of chest congestion and cough. Patient was here recently treated with antibiotic and was sent back; however, his congestion and cough and shortness of breath got worse and he came to emerg ency room. Based on her cough that has been present over the past 2 to 3 weeks, which is a producti ve cough. There is no clear fever noted. We are kindly asked to rule out CHF, underlying. PAST MEDICAL HISTORY: History of hypertension, history of left femoral fracture, end-stage renal di sease, anxiety, depression, anemia, chronic pain and history of paroxysmal atrial fibrillation. FAMILY HISTORY: No reported early coronary artery disease. SURGICAL HISTORY: Status post femoral surgery. MEDICATIONS: As per medical reconciliation, personally reviewed. SOCIAL HISTORY: Does not smoke or drink, lives in a usp. REVIEW OF SYSTEMS: As above mentioned, she denied all other, however, plus poor memory. PHYSICAL EXAMINATION: VITAL SIGNS: Temperature 98.1, heart rate of 82, blood pressure 131/72, respiration rate of 18, sat urating 96%. HEENT: Normocephalic, atraumatic. Pupils are equal. CARDIOVASCULAR: Regular rate and rhythm, systolic murmur. PULMONARY: With mild rhonchi, diffuse mild wheezes. GASTROINTESTINAL: Soft, nontender. EXTREMITIES: With no significant lower extremity edema. NEUROLOGIC: Awake and alert, oriented to person and place. PSYCHIATRIC: Appears to be calm and pleasant. LABORATORY: WBC of 3.1, hemoglobin 8.5, platelet 159. Sodium 145, potassium 2.7, BUN of 5, creatin ine 0.59, glucose of 80. Albumin is 2.4. INR 1.29. Chest x-ray was personally reviewed, which rubia ws persistent left lower lobe atelectasis or infiltrate with trace left pleural effusion. No new in filtrate. Review of the old chart showed the patient's echocardiogram done previously on 06/03/2016 which was personally reviewed, showed ejection fraction was 65% with ____ of the left atrium. Mild to moderat e MR and mild to moderate AI noted. ASSESSMENT AND PLAN: 1. Pneumonia/bronchitis. 2. Possible mild congestive heart failure with diastolic dysfunction, acute on chronic. 3. History of hypertension, currently controlled. 4. History of paroxysmal atrial fibrillation, currently appears to be in sinus. 5. Electrolyte abnormalities and hypokalemia. 6. Dementia. RECOMMENDATIONS: Antibiotic is managed as per Dr. Aguilar. Pulmonary care as per Dr. Aguilar and assoc kemi. One dose of Lasix has been ordered for today. We will monitor electrolytes including potas sium to be replaced as well. I will check the procalcitonin for tomorrow. We will continue with th e beta lucille as tolerated. Aspirin will be continued. Nutritional support will be continued. Thank you for this referral. We will continue to follow along with you. Dictated By: JEAN MARIE NGUYEN/LIZ Conf#: [id number] DID#: [id number]
--- NOTE | 2016-09-30 19:04 | HP ---
DATE OF ADMISSION: 09/29/2016 REASON FOR ADMISSION: Acute respiratory failure, pneumonia, acute bronchitis, rule out congestive h eart failure. HISTORY OF PRESENT ILLNESS: The patient is a 80-year-old [place]ian female, very well known to me. Italia shafer has a history of hypertension, depression, gastroesophageal reflux disease, anxiety, anemia, statu s post left femur surgery. Also, history of constipation, paroxysmal atrial fibrillation. The piyush ent was in usual state of health up until the recent admission 09/22/2016 when she presented with ur inary tract infection, pneumonia, fevers, and sepsis. At that time, she was found to have pneumonia , Escherichia coli bacteremia, pansensitive. The patient was stabilized with IV antibiotics and dis charged on oral Levaquin. Exact compliance is not clear. In addition, I did order home mia. The patient did not have home health. Overall the patient was doing well up until the day of admission when the brother visited her and noted the patient to have a severe cough. She was seen by Dr. Elroy Aguilar who noted that the patient is very congested. We were very concerned as the patient does r eside in assisted living facility, and she was sent back to the hospital for evaluation. In the ER, chest x-ray still confirmed left basilar infiltrates concerning for pneumonia. There was slight al so pleural effusion as well. The patient was started back on broad spectrum antibiotics and admitte d for further care. Upon questioning, the patient did report having cough, congestion, and mild rubia rtness of breath. Otherwise she is complaining of slight sacral pain likely from pressure. She den ies any chest pain. She denies any numbness. The patient is admitted for further care. PAST MEDICAL HISTORY: Includes hypertension, left femur fracture, gastroesophageal reflux disease, anxiety, anemia, depression, chronic pain, paroxysmal atrial fibrillation. ALLERGIES: MORPHINE. SOCIAL HISTORY: The patient denies tobacco, alcohol, or IV drug use. The patient is a poor histori an. She resides at [facility]. SURGICAL HISTORY: Left femur intramedullary tayler placement. FAMILY HISTORY: Brother is in charge and makes decisions. His name is Ethan. His phone number is . MEDICATIONS: Include the following 1. Ferrous sulfate 325 mg daily. 2. Amiodarone 200 mg daily. 3. Digoxin 0.125 daily. 4. Lopressor 25 b.i.d. 5. Aspirin 81 daily. 6. Clonazepam 0.5 b.i.d. 7. Gabapentin 300 t.i.d. 8. Ropinirole. 9. Requip 0.25 at bedtime. 10. Calcium plus D 1 tab b.i.d. 11. Multivitamin 1 tab daily. IMAGING: EKG was not done. Chest x-ray shows persistent left lower lobe atelectasis infiltrate wit h trace left pleural effusion, no new infiltrates, stable mild cardiomegaly, and sclerotic aortic ca lcification. There is osteopenia as well. PHYSICAL EXAMINATION: VITAL SIGNS: Temperature is 97.7, pulse 82, respirations 16, blood pressure 130/72, saturation 98% on 2 liters. GENERAL: The patient is in no acute distress, responding appropriately. The patient is pale. NECK: JVD 3 cm. CARDIOVASCULAR: S1, S2, regular rate. LUNGS: Diffuse rhonchi and slight wheezing bilaterally. ABDOMEN: Soft, nontender. EXTREMITIES: There is no clubbing, cyanosis, or edema. Noted skin changes on the extremities inclu ding the sacrum. LABORATORY DATA: White count is 3.1, hemoglobin 8.5, hematocrit 29, platelets 159, neutrophils 41%, lymphocytes 52%. Chemistry: Sodium is 145, potassium 2.7, chloride 106, bicarbonate 33, BUN is 5, creatinine 0.49, glucose of 80, calcium 7.9, phosphorus 3.1, magnesium 2.1, total protein 5.5, albu min 2.4. ASSESSMENT AND PLAN: This is an unfortunate 80-year-old [place]ian female with history of anxiety diso rder, amputation, multiple orthopedic surgeries in the past, gastroesophageal reflux disease, histor y of brain tumor, status post resection many years ago, history of left femur fracture, arrhythmia, possible atrial fibrillation. The patient has a risk of fall and anemia, so she is not fully antico agulated. She recently was treated for UTI, sepsis, pneumonia, and bacteremia. She now presents ag ain with increased congestion. 1. Respiratory: The patient with significant active lung disease, likely from pneumonia, bronchiti s, possible component of fluid overload state. The patient will be treated with IV antibiotic with cefepime and vancomycin as the patient recently had E. coli infection, UTI, bacteremia, and MRSA of the nares. The patient will be given cefepime and vancomycin and breathing treatment around the saul ck. Continue to monitor condition. Lasix 40 x1 will be given, and we will follow closely. May con area secretary steroids if no improvement. 2. Cardiovascular. The patient with history of arrhythmia. Continue beta blockers. DVT prophylax is. Cardiology was consulted. Recent echocardiogram did reveal evidence of diastolic dysfunction h eart failure. Observe. 3. Infectious disease. Again, continue treatment. The patient had recent bacteremia. Treat under lying pneumonia. Followup chest x-ray in a few days. 4. History of pancytopenia. Platelet count is now normal. She does have leukopenia and anemia. P revious workup did reveal low TIBC, suggestive of anemia of chronic disease. Stool occult blood on multiple occasions was negative. We will transfuse p.r.n. 5. Dementia and debilitated state. May need higher level of care upon discharge. 6. Stool softeners will be given as needed. 7. The patient will be placed on Protonix for GI prophylaxis. 8. Restless leg syndrome on Requip at night. 9. Wound care per compliance specialist. Air mattress bed will be ordered. Frequent turning as per pro tocol. I spoke with the brother, Ethan, in detail regarding the patient's condition. We will follow. Dictated By: ALEXANDER ROSADO/LIZ Conf#: [id number] DID#: [id number]
[2016-09-30 20:35] VITALS: BP 110/67; RESP 19
[2016-09-30] MEDS ORDERED: POTASSIUM CHLORIDE (SR) 20 MEQ TAB PO ONE (22:00)
[2016-09-30] MEDS: ROPINIROLE 0.25 MG TAB PO SCH (22:00)
[2016-10-01] MEDS: HYDROCODONE/APAP (5/325) TAB PO PRN ×2 (01:01→21:50)
[2016-10-01] MEDS: ALBUTEROL/IPRATROPIUM (NEB) 3 ML AMP NEB SCH ×6 (01:50→20:16)
[2016-10-01] MEDS: PANTOPRAZOLE (EC) 40 MG TAB PO SCH (05:53)
[2016-10-01] MEDS: CEFEPIME 2GM/50 ML (PMX) 50 ML IV SCH ×2 (08:21→20:48)
[2016-10-01] MEDS: METOPROLOL 25 MG TAB PO SCH ×2 (08:22→20:50)
[2016-10-01 08:23] LABS: ADD SCAN DIFF NO
[2016-10-01] MEDS: CALCIUM/VITAMIN D (500/200) TAB PO SCH ×2 (08:24→20:50)
[2016-10-01] MEDS: MULTIVITAMINS THERAPEUTIC TAB PO SCH (08:24)
[2016-10-01] MEDS: clonAZEPAM 0.5 MG TAB PO SCH ×3 (08:24→20:50)
[2016-10-01] MEDS: ASPIRIN (EC) 81 MG TAB PO SCH (08:24)
[2016-10-01] MEDS: GABAPENTIN 300 MG CAP PO SCH ×3 (08:24→20:51)
[2016-10-01] MEDS: ENOXAPARIN 40 MG/0.4 ML SYG SC SCH (08:26)
[2016-10-01 08:30] LABS: EOSINOPHILS % 1.1 % (0.0-7.0); HEMATOCRIT 29.4 % (37.0-47.0); HEMOGLOBIN 8.8 g/dl (12.0-16.0); LYMPHOCYTES # 1.3 10^3/ul (0.8-2.9); LYMPHOCYTES % 49.2 % (15.0-51.0); MEAN CORPUSCULAR HGB CONC 29.9 g/dl (32.0-37.0); MEAN CORPUSCULAR VOLUME 110.1 fl (82.0-101.0); MEAN PLATELET VOLUME 9.2 fl (7.4-10.4); MONOCYTE # 0.1 10^3/ul (0.3-0.9); MONOCYTES % 4.5 % (0.0-11.0); NEUTROPHIL # 1.2 10^3/ul (1.6-7.5); NEUTROPHILS % 44.4 % (39.0-77.0); PLATELET COUNT 148 10^3/UL (140-415); RED BLOOD COUNT 2.67 10^6/ul (4.20-5.40); RED CELL DISTRIBUTION WIDTH 16.8 % (11.5-14.5); WHITE BLOOD COUNT 2.7 10^3/ul (4.8-10.8)
[2016-10-01 08:41] VITALS: BP 130/66; RESP 19
[2016-10-01 08:48] LABS: PHOSPHORUS 3.6 mg/dl (2.5-4.9)
[2016-10-01 08:49] LABS: MAGNESIUM 2.5 mg/dl (1.7-2.5); POTASSIUM 4.2 mmol/L (3.5-5.1)
[2016-10-01 08:52] LABS: CREATININE 0.63 mg/dl (0.44-1.00)
[2016-10-01 08:53] LABS: CALCIUM 8.6 mg/dl (8.4-10.2)
[2016-10-01] MEDS: VANCOMYCIN 1 GM in NS 250 ML IVPB SCH (10:05)
--- NOTE | 2016-10-01 15:38 | PN ---
DATE: 10/01/2016 SUBJECTIVE: The patient seen, feels slightly better. Remains still very congested on physical exam . Noted labs today. Also sputum culture shows Gale albicans. Case discussed as well with the jolanta moise's brother, Ethan, regarding the patient's ongoing care. PHYSICAL EXAMINATION: VITAL SIGNS: Temperature 97.9, pulse 78, respirations 20, blood pressure 130/66, saturation 96% to 100% on 2 liters. GENERAL: The patient is in no acute distress. HEENT: Normocephalic, pale. CARDIOVASCULAR: S1 and S2, regular rate. LUNGS: Diffuse rhonchi bilaterally. ABDOMEN: Soft, nontender. EXTREMITIES: No clubbing, cyanosis, or edema. LABORATORY DATA: White count is 2.7, hemoglobin 8.8, hematocrit 29, platelets 148, neutrophils 44%, lymphocytes 49%. Chemistry: Sodium is 148, potassium 4.2, chloride 107, bicarbonate 35, BUN is 10 , creatinine is 0.66, glucose of 85. BNP almost normal at 569. Phosphorus and magnesium 3.6 and 2.5 , respectively. Albumin yesterday was 2.4, low. Blood cultures negative. Sputum culture prelimina ry shows Gale albicans. MEDICATIONS: Include 1. Vancomycin dose per pharmacy. 2. Diflucan I just started 100 daily. 3. Requip 0.25 at bedtime. 4. Lovenox 40 mg subcutaneous daily. 5. Cefepime 1 gram q.12. 6. Aspirin 81 mg daily. 7. Calcium plus D 500/200 b.i.d. 8. Klonopin 0.5 t.i.d. 9. Neurontin 300 t.i.d. 10. Lopressor 25 b.i.d. 11. Multivitamin 1 tablet daily. 12. Protonix 40 mg daily. 13. DuoNeb every 4 hours. 14. Hydralazine p.r.n. 15. Zofran p.r.n. 16. Tylenol p.r.n. 17. [place] p.r.n. 18. Colace p.r.n. 19. Milk of magnesia p.r.n. 20. Ambien p.r.n. ASSESSMENT AND PLAN: This is a 80-year-old [place] female with history of anxiety disorder, multipl e orthopedic surgeries in the past, gastroesophageal reflux disease, history of brain tumor, status post resection many years ago, history of left femur fracture, arrhythmia, possible atrial fibrillat ion, who presented recently with urinary tract infection, sepsis, pneumonia and bacteremia. Unfortu nately, had to come back to the hospital for increased congestion and shortness of breath. 1. Respiratory. The patient with likely acute bronchitis and underlying pneumonia. We will add IV Solu-Medrol. Continue above antibiotic regimen. Status post diuretic therapy as well. We will co ntinue also with antifungal treatment with Diflucan. 2. Cardiovascular. The patient with history of arrhythmia. Continue beta blockers, DVT prophylaxi s. Appreciate cardiology input. 3. Infectious disease. Continue treatment with the above antibiotics. We will slowly de-escalate antibiotic therapy. Previously she did have methicillin-resistant Staphylococcus aureus of the nare s. 4. Pancytopenia, observe. May consider CT scan of the abdomen to evaluate spleen size and hematolo gy followup and evaluation. 5. Overall mild dementia and debilitated state. May benefit from a higher level of care and treatm ent at a correction facility. 6. Continue stool softeners as needed. 7. Continue gastrointestinal prophylaxis. 8. Continue Requip for restless leg syndrome. 9. economic specialist and frequent turning. Air mattress bed is ordered. 10. Monitor patient's p.o. intake and progressive. I have been in touch with the brother on a routine basis. We will follow. Dictated By: ALEXANDER ROSADO/LIZ Conf#: [id number] DID#: [id number]
[2016-10-01] MEDS: METHYLPREDNISOLONE 125 MG INJ IV SCH ×2 (16:33→21:38)
[2016-10-01] MEDS: FLUCONAZOLE 100 MG TAB PO SCH (16:33)
[2016-10-01] MEDS: ROPINIROLE 0.25 MG TAB PO SCH (20:50)
[2016-10-01 21:30] VITALS: BP 125/74; RESP 20
[2016-10-01] MEDS: VANCOMYCIN 750 MG in SOD CHLORIDE 0.9% 150 ML IVPB SCH (21:38)
[2016-10-01] MEDS: ZOLPIDEM 5 MG TAB PO PRN (22:04)
[2016-10-02] MEDS: ACETAMINOPHEN 325 MG TAB PO PRN (00:51)
[2016-10-02] MEDS: ALBUTEROL/IPRATROPIUM (NEB) 3 ML AMP NEB SCH ×6 (01:00→20:44)
[2016-10-02 05:23] LABS: ADD SCAN DIFF NO
[2016-10-02 05:27] LABS: ABNORMAL IP MESSAGE 1; HEMATOCRIT 30.4 % (37.0-47.0); HEMOGLOBIN 9.1 g/dl (12.0-16.0); LYMPHOCYTES # 0.5 10^3/ul (0.8-2.9); LYMPHOCYTES % 21.1 % (15.0-51.0); MEAN CORPUSCULAR HEMOGLOBIN 32.4 pg (29.0-33.0); MEAN CORPUSCULAR HGB CONC 29.9 g/dl (32.0-37.0); MEAN CORPUSCULAR VOLUME 108.2 fl (82.0-101.0); MEAN PLATELET VOLUME 10.1 fl (7.4-10.4); MONOCYTES % 0.4 % (0.0-11.0); NEUTROPHILS % 78.1 % (39.0-77.0); PLATELET COUNT 170 10^3/UL (140-415); RED BLOOD COUNT 2.81 10^6/ul (4.20-5.40); RED CELL DISTRIBUTION WIDTH 16.2 % (11.5-14.5); WHITE BLOOD COUNT 2.6 10^3/ul (4.8-10.8)
[2016-10-02] MEDS: PANTOPRAZOLE (EC) 40 MG TAB PO SCH (05:38)
[2016-10-02] MEDS: METHYLPREDNISOLONE 125 MG INJ IV SCH ×3 (05:39→21:49)
[2016-10-02 05:47] LABS: POTASSIUM 4.9 mmol/L (3.5-5.1)
[2016-10-02 05:50] LABS: CREATININE 0.6 mg/dl (0.44-1.00)
[2016-10-02 05:51] LABS: CALCIUM 8.8 mg/dl (8.4-10.2)
[2016-10-02 06:20] LABS: PHOSPHORUS 3.8 mg/dl (2.5-4.9)
[2016-10-02 06:21] LABS: MAGNESIUM 2.5 mg/dl (1.7-2.5)
[2016-10-02 08:48] VITALS: BP 128/73; RESP 18
[2016-10-02] MEDS: CEFEPIME 2GM/50 ML (PMX) 50 ML IV SCH ×2 (09:02→20:35)
[2016-10-02] MEDS: FLUCONAZOLE 100 MG TAB PO SCH (09:03)
[2016-10-02] MEDS: clonAZEPAM 0.5 MG TAB PO SCH ×3 (09:03→20:34)
[2016-10-02] MEDS: ASPIRIN (EC) 81 MG TAB PO SCH (09:03)
[2016-10-02] MEDS: MULTIVITAMINS THERAPEUTIC TAB PO SCH (09:04)
[2016-10-02] MEDS: METOPROLOL 25 MG TAB PO SCH ×2 (09:04→20:37)
[2016-10-02] MEDS: CALCIUM/VITAMIN D (500/200) TAB PO SCH ×2 (09:04→20:34)
[2016-10-02] MEDS: GABAPENTIN 300 MG CAP PO SCH ×3 (09:04→20:34)
[2016-10-02] MEDS: ENOXAPARIN 40 MG/0.4 ML SYG SC SCH (09:05)
[2016-10-02] MEDS: VANCOMYCIN 750 MG in SOD CHLORIDE 0.9% 150 ML IVPB SCH ×2 (09:35→21:18)
--- NOTE | 2016-10-02 15:28 | PN ---
DATE: 10/02/2016 SUBJECTIVE: The patient reports feeling weak, otherwise somewhat better. PHYSICAL EXAMINATION: VITAL SIGNS: Temperature 97, pulse 128 , oxygen saturation 94%. LUNGS: Decreased breath sounds bilaterally. CARDIAC: Regular rate and rhythm. ABDOMEN: Soft, nontender. EXTREMITIES: Reveal no edema. CURRENT MEDICATIONS: 1. Vancomycin. 2. Solu-Medrol. 3. Requip. 4. Fluconazole. 5. Lovenox. 6. Cefepime. 7. Aspirin. 8. Clonazepam. 9. Metoprolol. 10. Protonix. LABORATORY RESULTS: Reviewed. White count 2.6, hematocrit 30.4, platelet count 170. Sodium 145, p otassium 4.9, BUN 30, creatinine 0.6. ASSESSMENT: Respiratory failure, likely acute bronchitis/pneumonia, does not appear to be cardiac i n origin. Continue Solu-Medrol and steroids. The patient will be followed by Dr. Rivera beginning tomorrow. Dictated By: FREDRICK SINGH/LIZ Conf#: [id number] DID#: [id number]
--- NOTE | 2016-10-02 18:29 | RADRPT ---
PROCEDURE: CT Chest without contrast. CLINICAL INDICATION: Dyspnea, wheezing TECHNIQUE: CT scan of the chest without contrast was performed on a multidetector high-resolution CT scanner. Coronal and sagittal reformatted images were obtained from the axial source images. The total exam CTDI equals 10.7 mGy and the total exam DLP equals 379 mGy-cm. COMPARISON: None available. FINDINGS: There are numerous scattered micronodules in the right lung, numbering at least 5 in quantity, measu ring up to 3 mm in diameter and at least 1 of which has coarse calcification. The findings suggest prior infectious process. There is a small left pleural effusion. There is mild consolidation in the posterior left lung base. There is no evidence of pleural effusion, pneumothorax or pulmonary edema. The central tracheobronchial tree is clear. There is shotty mediastinal adenopathy with lymph nodes measure up to 10 mm in short axis in the pre carinal station. The vascular structures of the mediastinum are normal in course and caliber. Advanced aortic vascular calcifications and coronary artery calcifications are present. Advanced arteriosclerosis is also noted in the visceral arteries. The heart size is normal, without pericardial thickening or effusion. The axillary regions, subpectoral regions, and supraclavicular regions are unremarkable and without evidence of adenopathy. Limited imaging of the upper abdomen reveals no acute abnormality. There is surgical change around the distal esophagus with KANIKA suture, suggesting anastomoses. The stomach is not visualized. This findings suggest previous gastrectomy. The gallbladder surgically absent. The osseous structures are remarkable for degenerative spondylosis of the spine. There are mild wedge deformities at multiple levels in the mid thoracic spine with exaggerated kypho sis. There is a large Schmorl's node at L1. No osteolytic or osteoblastic lesion is detected. IMPRESSION: 1. Numerous micronodules in the right lung measuring up to 3 mm, least 1 of which demonstrates dens e calcification, suggesting old granulomatous disease. follow-up CT scan in 1 year is suggested to assess for stability. 2. Surgical change around the distal esophagus suggesting prior gastrectomy. 3. Small left and trace right pleural effusion. 4. Compressive atelectasis versus infiltrate in left lung base. 5. Shotty mediastinal adenopathy with multiple sub centimeter lymph nodes and precarinal lymph node which measures 10 mm in short axis. 6. Advanced atherosclerotic peripheral vascular disease. 7. Advanced arteriosclerosis. 8. Multiple mild wedge deformities in the mid thoracic spine, consistent with compression fractures , suggesting osteoporosis. RPTAT: QQ .Maciel Bajwa MD, Date Time Electronically viewed and signed by .Maciel Bajwa MD, on 10/02/2016 18:29 .M/
--- NOTE | 2016-10-02 18:51 | PN ---
DATE: 10/02/2016 SUBJECTIVE: Patient still with ongoing cough, not much better than yesterday, still wheezing modera tely. Case discussed with the brother, who is concerned. PHYSICAL EXAMINATION: VITAL SIGNS: Patient's temperature 97.7, pulse 78, respirations 18, blood pressure 128/73, saturati on 94% on 2 liters. GENERAL: The patient in no acute distress. HEENT: Normocephalic, atraumatic. The patient is pale. Dry mucous membranes. CARDIOVASCULAR: S1 and S2. LUNGS: Diffuse moderate wheezing and rhonchi. ABDOMEN: Soft, nontender. EXTREMITIES: No clubbing, cyanosis, or edema. LABORATORY DATA: Sodium is 145, potassium 4.9, chloride 102, bicarbonate 33, BUN is 13, creatinine 0.6, glucose of 139. BNP yesterday was almost normal at 569. White count is 2.6, hemoglobin 9.1, hematocrit 30, platelet count 170,000, neutrophils 78%, lymphocytes 21%. The patient's sputum cultu re shows Gale albicans, +1. Blood cultures negative. Imaging tests on admission were reviewed. MEDICATIONS: Include: 1. I started her back on Bactroban b.i.d., as she had MRSA of the nares, recently on vancomycin, IV dose per pharmacy. 2. Solu-Medrol 60 IV q.8. 3. Diflucan 100 mg daily. 4. Requip 0.25 nightly. 5. Lovenox 40 mg subcutaneous daily. 6. Cefepime 1 gram q.12. 7. Aspirin 81 mg daily. 8. Calcium plus D 1 tab b.i.d. 9. Clonazepam 0.5 t.i.d. 10. Neurontin 300 b.i.d. 10. Metoprolol 25 b.i.d. 11. Multivitamin 1 tablet daily. 12. Protonix 40 mg daily. 13. DuoNeb as directed every 4 hours. Patient refused the DuoNeb this morning. 14. Hydralazine p.r.n. 15. Zofran p.r.n. 16. Tylenol p.r.n. 17. [place] p.r.n. 18. Colace p.r.n. 19. Milk of magnesia p.r.n. 20. Ambien p.r.n. 21. Vancomycin p.r.n. 22. DuoNeb p.r.n. ASSESSMENT AND PLAN: This is a 80-year-old English female with history of anxiety disorder, multipl e orthopedic surgeries in the past, gastroesophageal reflux disease, history of brain tumor, status post resection, left femur fracture, arrhythmia, possible atrial fibrillation, who presented recentl y with urinary tract infection, sepsis, bacteremia, and pneumonia. Unfortunately, came back with in creased congestion and shortness of breath. 1. Respiratory: Ongoing congestion, shortness of breath, and cough. Despite the above underlying treatment she continues to have symptoms. We will obtain a CT scan of the chest to rule out any oth er pathology. The patient has persistent mild left pleural effusion and atelectatic changes 2. Cardiovascular: Patient with history of arrhythmia. Continue beta blockers. Beta blockers may exacerbate her wheezing as well. 3. Infectious disease: Recently been treated for pneumonia, urinary tract infection, and bacteremi a. Continue on broad spectrum antibiotics. The patient also had history of methicillin-resistant S taphylococcus aureus. Deescalate antibiotics soon. 4. Pancytopenia: CAT scan of the chest may show the upper abdomen as well. We will follow up with results. Platelets improved with steroids. Observe. 5. Mild dementia and debilitated state: May need higher level of care for physical therapy and saul se monitoring. 6. Continue stool softener. 7. Continue gastrointestinal prophylaxis. 8. Continue Requip for restless leg syndrome. 9. 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 10. Case discussed with the brother, Ethan. 11. Continue Diflucan for the Gale albicans in the sputum. We will follow. Dictated By: ALEXANDER ROSADO/LIZ Conf#: [id number] DID#: [id number]
[2016-10-02 20:31] VITALS: BP 140/68; RESP 18
[2016-10-02] MEDS: ROPINIROLE 0.25 MG TAB PO SCH (20:34)
[2016-10-02] MEDS: HYDROCODONE/APAP (5/325) TAB PO PRN (20:35)
[2016-10-02] MEDS: MUPIROCIN 2% 22 GM OINT TOP SCH (20:35)
[2016-10-02] MEDS: ZOLPIDEM 5 MG TAB PO PRN (21:04)
[2016-10-03] MEDS: ALBUTEROL/IPRATROPIUM (NEB) 3 ML AMP NEB SCH ×6 (01:48→21:53)
[2016-10-03 05:52] LABS: MAGNESIUM 2.6 mg/dl (1.7-2.5); PHOSPHORUS 3.5 mg/dl (2.5-4.9); POTASSIUM 3.8 mmol/L (3.5-5.1)
[2016-10-03 05:54] LABS: CREATININE 0.7 mg/dl (0.44-1.00)
[2016-10-03 05:55] LABS: CALCIUM 8.9 mg/dl (8.4-10.2)
[2016-10-03] MEDS: METHYLPREDNISOLONE 125 MG INJ IV SCH ×3 (06:10→21:20)
[2016-10-03] MEDS: PANTOPRAZOLE (EC) 40 MG TAB PO SCH (06:10)
[2016-10-03 07:56] VITALS: BP 153/71; RESP 18
[2016-10-03 08:55] LABS: ADD SCAN DIFF NO
[2016-10-03 08:58] LABS: ABNORMAL IP MESSAGE 1; BASOPHILS % 0.1 % (0.0-2.0); HEMATOCRIT 33.2 % (37.0-47.0); HEMOGLOBIN 9.9 g/dl (12.0-16.0); LYMPHOCYTES # 0.6 10^3/ul (0.8-2.9); LYMPHOCYTES % 7.9 % (15.0-51.0); MEAN CORPUSCULAR HEMOGLOBIN 32.9 pg (29.0-33.0); MEAN CORPUSCULAR HGB CONC 29.8 g/dl (32.0-37.0); MEAN CORPUSCULAR VOLUME 110.3 fl (82.0-101.0); MEAN PLATELET VOLUME 10.4 fl (7.4-10.4); MONOCYTE # 0.1 10^3/ul (0.3-0.9); MONOCYTES % 0.7 % (0.0-11.0); NEUTROPHIL # 6.6 10^3/ul (1.6-7.5); NEUTROPHILS % 90.9 % (39.0-77.0); PLATELET COUNT 218 10^3/UL (140-415); RED BLOOD COUNT 3.01 10^6/ul (4.20-5.40); RED CELL DISTRIBUTION WIDTH 16.4 % (11.5-14.5); WHITE BLOOD COUNT 7.3 10^3/ul (4.8-10.8)
[2016-10-03] MEDS: MULTIVITAMINS THERAPEUTIC TAB PO SCH (09:43)
[2016-10-03] MEDS: ASPIRIN (EC) 81 MG TAB PO SCH (09:43)
[2016-10-03] MEDS: METOPROLOL 25 MG TAB PO SCH ×2 (09:43→21:21)
[2016-10-03] MEDS: MUPIROCIN 2% 22 GM OINT TOP SCH ×2 (09:43→21:20)
[2016-10-03] MEDS: FLUCONAZOLE 100 MG TAB PO SCH (09:43)
[2016-10-03] MEDS: CALCIUM/VITAMIN D (500/200) TAB PO SCH ×2 (09:43→21:19)
[2016-10-03] MEDS: GABAPENTIN 300 MG CAP PO SCH ×3 (09:43→21:18)
[2016-10-03] MEDS: clonAZEPAM 0.5 MG TAB PO SCH ×3 (09:43→21:19)
[2016-10-03] MEDS: ENOXAPARIN 40 MG/0.4 ML SYG SC SCH (09:49)
[2016-10-03] MEDS: CEFEPIME 2GM/50 ML (PMX) 50 ML IV SCH ×2 (11:00→21:21)
[2016-10-03] MEDS: VANCOMYCIN 750 MG in SOD CHLORIDE 0.9% 150 ML IVPB SCH (13:19)
[2016-10-03] MEDS: HYDROCODONE/APAP (5/325) TAB PO PRN (13:27)
[2016-10-03] MEDS ORDERED: GUAIFENESIN/CODEINE 5ML CUP PO PRN (18:30)
[2016-10-03] MEDS: GUAIFENESIN LA 600 MG TABSR PO SCH (21:19)
[2016-10-03] MEDS: ROPINIROLE 0.25 MG TAB PO SCH (21:19)
[2016-10-03 21:41] VITALS: BP 145/70; RESP 16
[2016-10-04] MEDS: VANCOMYCIN 750 MG in SOD CHLORIDE 0.9% 150 ML IVPB SCH ×2 (01:01→12:00)
[2016-10-04] MEDS: METHYLPREDNISOLONE 125 MG INJ IV SCH ×3 (05:29→20:24)
[2016-10-04] MEDS: PANTOPRAZOLE (EC) 40 MG TAB PO SCH (05:29)
--- NOTE | 2016-10-04 07:57 | PN ---
DATE: 10/03/2016 SUBJECTIVE: The patient is seen. The main complaint is she continues to cough. Otherwise, the pat ient states that she is eating more. No acute events overnight. PHYSICAL EXAMINATION: VITAL SIGNS: The patient remains afebrile, temperature 98, pulse 72, respirations 18, blood pressur e 153/71, and saturation 96% on 2 liters. GENERAL: The patient is in no acute distress. The patient is pale. CARDIOVASCULAR: S1 and S2. LUNGS: Still had bilateral rhonchi, mild to moderate. ABDOMEN: Soft, nontender. EXTREMITIES: No clubbing, cyanosis, or edema. LABORATORY DATA: White count is 7.2, hemoglobin 9.9, hematocrit 33, platelet count 218, neutrophils 91%, lymphocytes 8%. Chemistry: Sodium is 144, potassium 3.8, chloride 102, bicarbonate 33, BUN i s 18, creatinine 0.7, glucose 138. CT scan of the chest was done which shows numerous micronodules in the right lung measuring up to 3 mm, at least one of which demonstrated dense calcification sugge sting old granulomatous disease. Followup CT in 1 year is suggested. Surgical changes around the d istal esophagus suggesting prior gastrectomy, a small left and trace right pleural effusion, rissa sive atelectasis versus infiltrate in the left lung, shotty mediastinal adenopathy with multiple sub centimeter lymph nodes and precarinal lymph node which measured 10 mm in short axis, advanced athero sclerotic peripheral vascular disease, advanced atherosclerosis and multiple mild wedge deformities in the mid thoracic spine consistent with compression fracture supporting osteoporosis. CURRENT MEDICATIONS: Include the followin. Vancomycin dose per pharmacy. 2. Bactroban b.i.d. 3. Solu-Medrol 60 IV q. 8. 4. Diflucan 100 mg daily. 5. Requip 0.25 at bedtime. 6. Lovenox 40 mg subQ daily. 7. Cefepime 1 gram q. 12. 8. Aspirin 81 mg daily. 9. Calcium plus D 1 tab b.i.d. 10. Klonopin 0.5 t.i.d. 11. Neurontin 300 t.i.d. 12. Lopressor 25 b.i.d. 13. Multivitamin 1 tablet daily. 14. Protonix 40 mg daily. 15. DuoNeb every 4 hours. 16. Hydralazine p.r.n. 17. Zofran p.r.n. 18. Tylenol p.r.n. 19. [place] p.r.n. 20. Colace p.r.n. 21. Milk of magnesia p.r.n. 22. Ambien. 23. Vancomycin IV dose per pharmacy. 24. Albuterol p.r.n. ASSESSMENT AND PLAN: This is an unfortunate 80-year-old Indian female with history of dementia, an xiety disorder, multiple orthopedic surgeries and multiple other surgeries in the past, gastroesopha geal reflux disease, history of brain tumor, gastrectomy, left femur fracture status post repair, ar rhythmia, possible paroxysmal atrial fibrillation who presented recently with urinary tract in fection, sepsis, bacteremia and pneumonia. Unfortunately, failed stabilization at home now came eagle k with ongoing shortness of breath, cough and congestion. 1. Respiratory. Continue steroids, antibiotics, breathing treatment and O2 support. CAT scan of t he chest was reviewed, no significant pathology besides left-sided atelectasis, pleural effusion and possible pneumonia. 2. Infectious disease. Continue above treatment plan. Continue antifungals as well as the patient has Gale albicans in the sputum. 3. Pancytopenia. Monitor, platelet count improved. 4. Mild dementia. 5. Continue stool softeners. 6. Continue Requip for restless leg syndrome. 7. Case discussed with the brother, Ethan, he is aware of the patient's current plan of care. 8. We will ask physical therapy to assess, mobility is important. 9. Continue deep vein thrombosis prophylaxis and gastrointestinal prophylaxis. 10. Cough suppressant will be provided. Dictated By: ALEXANDER ROSADO/LIZ Conf#: [id number] DID#: [id number]
--- NOTE | 2016-10-04 07:58 | PN ---
DATE: 10/03/2016 CARDIOLOGY FOLLOWUP SUBJECTIVE: ____ No chest pain or pressure. Still coughing, shortness of breath, but improved. MEDICATIONS: Reviewed. PHYSICAL EXAMINATION: VITAL SIGNS: Temperature 98, heart rate of 72, blood pressure 153/71, respiration rate of 18, satur ating 96%. HEENT: Normocephalic, atraumatic. Pupils are equal. CARDIOVASCULAR: Regular rate and rhythm now with systolic murmur. PULMONARY: With mild rhonchi, diffuse. No wheezes. GASTROINTESTINAL: Soft, nontender. No rebound or guarding noted. EXTREMITIES: With no significant lower extremity edema. No cyanosis or clubbing. NEUROLOGIC: Awake and alert, oriented to person and place. PSYCHIATRIC: Appears to be calm at this point. DERMATOLOGIC: There are multiple ecchymoses throughout the body. LABORATORY: WBC of 7.3, hemoglobin 9.9, platelets of 418. Sodium 144, potassium 3.8, BUN of 18, cr eatinine 0.7, glucose 138. CT of the chest done on the shows numerous micronodules in the righ t lung measured up to 3 mm. Surgical change of distal esophagus related to prior gastrectomy. Comp ressive atelectasis versus infiltrate in the left lung base. Multiple ____ deformities in the mid t horacic spine consistent with compression fracture. ASSESSMENT AND PLAN: 1. Bronchitis/pneumonia/pulmonary congestion. 2. Question of mild diastolic dysfunction/congestive heart failure. Currently does not appear to b e much of fluid overload ____ 3. History of arrhythmia, currently stable. 4. Hypertension. 5. Pancytopenia. 6. Dementia. RECOMMENDATIONS: Antibiotic as per Dr. Aguilar. Aspirin will be continued as tolerated; beta lucille as tolerated will be continued as well. Respiratory care will be continued. Dictated By: JEAN MARIE NGUYEN/LIZ Conf#: [id number] DID#: [id number]
[2016-10-04 08:10] VITALS: BP 131/69; RESP 18
[2016-10-04] MEDS: ALBUTEROL/IPRATROPIUM (NEB) 3 ML AMP NEB SCH ×3 (08:13→20:46)
[2016-10-04 09:00] VITALS: PULSE 62
[2016-10-04] MEDS: METOPROLOL 25 MG TAB PO SCH ×2 (09:00→20:27)
[2016-10-04] MEDS: GUAIFENESIN LA 600 MG TABSR PO SCH ×2 (09:08→20:25)
[2016-10-04] MEDS: FLUCONAZOLE 100 MG TAB PO SCH (09:08)
[2016-10-04] MEDS: CEFEPIME 2GM/50 ML (PMX) 50 ML IV SCH ×2 (09:08→20:24)
[2016-10-04] MEDS: clonAZEPAM 0.5 MG TAB PO SCH ×3 (09:08→20:25)
[2016-10-04] MEDS: CALCIUM/VITAMIN D (500/200) TAB PO SCH ×2 (09:08→20:25)
[2016-10-04] MEDS: MUPIROCIN 2% 22 GM OINT TOP SCH ×2 (09:08→20:40)
[2016-10-04] MEDS: GABAPENTIN 300 MG CAP PO SCH ×3 (09:09→20:25)
[2016-10-04] MEDS: ASPIRIN (EC) 81 MG TAB PO SCH (09:09)
[2016-10-04] MEDS: MULTIVITAMINS THERAPEUTIC TAB PO SCH (09:09)
[2016-10-04] MEDS: ENOXAPARIN 40 MG/0.4 ML SYG SC SCH (09:11)
[2016-10-04] MEDS: ACETAMINOPHEN 325 MG TAB PO PRN (10:30)
--- NOTE | 2016-10-04 15:16 | RADRPT ---
Echocardiogram Report Patient Name: JESSICA GIRARD Gender: Female Date: 1935 Study Date: 04-Oct-2016 Administrative Aide: Kristal Stevenson [facility] Location: 2265 Ref. Physician: JEAN MARIE RIVERA Quality: Good Procedures: Transthoracic echocardiogram with complete 2D, M-Mode, and doppler examination. Indications: Congestive Heart Failure. 2D/M Mode Doppler Measurement Value Normal Ranges Measurement Value Normal Ranges LVIDd 2D 4.5 3.5 - 5.6 cm AV Peak [place] 1.8 m/sec LVIDs 2D 2.3 2.1 - 4.1 cm AV Peak PG 13.0 mmHg FS 2D 48.9 % LVOT Peak [place] 1.4 m/sec LVPWd 2D 0.8 0.6 - 1.1 cm LVOT Peak PG 7.0 mmHg IVSd 2D 1.0 0.6 - 1.1 cm MV E Peak [place] 0.7 m/sec IVS/LVPW 2D 1.2 MV A Peak [place] 0.9 m/sec AoR Diam 2D 2.8 2.0 - 3.7 cm MV E/A 0.8 LA/Ao 2D 1 0 - 1 MV Decel Time 215 msec EDV 2D 88.7 cm3 MV E/A 0.8 ESV 2D 11.9 cm3 TR Peak [place] 2.4 m/sec LA Dimen 2D 3.4 2.3 - 4.0 cm TR Peak PG 23.0 mmHg RVSP 31.0 mmHg Findings Left Ventricle: Normal left ventricular systolic function. Normal left ventricular cavity size. Normal left ventricular wall thickness. Ejection fraction is visually estimated at 65 %. Tissue Doppler/Mitral Doppler indices are consistent with impaired relaxation (Stage I diastolic dysfunction). Right Ventricle: Normal right ventricular size. Normal right ventricular systolic function. Left Atrium: The left atrium is normal in size. Right Atrium: The right atrium is normal in size. Mitral Valve: Normal appearance of the mitral valve. Mild mitral annular calcification. Trace mitral regurgitation. Aortic Valve: Normal appearance of the aortic valve. No significant aortic stenosis or insufficiency. Tricuspid Valve: Normal appearance and function of the tricuspid valve with trace physiologic regurgitation. Normal right ventricular systolic pressure. Pulmonic Valve: Normal pulmonic valve appearance. Pericardium: Normal pericardium with no significant pericardial effusion. Aorta: Normal aortic root. IVC: Normal size and normal respiratory collapse consistent with normal right atrial pressure. Conclusions 1.Normal left ventricular systolic function. Normal left ventricular cavity size. Normal left ventricular wall thickness. Ejection fraction is visually estimated at 65 %. Tissue Doppler/Mitral Doppler indices are consistent with impaired relaxation (Stage I diastolic dysfunction). 2.Normal appearance of the mitral valve. Mild mitral annular calcification. Trace mitral regurgitation. 3.Normal appearance of the aortic valve. No significant aortic stenosis or insufficiency. 4.Normal appearance and function of the tricuspid valve with trace physiologic regurgitation. Normal right ventricular systolic pressure. Electronically Signed By: Jean Marie Rivera 04-Oct-2016 15:15:46 -0700 Patient Name: JESSICA GIRARD Study Date: 04-Oct-2016 [id number]
--- NOTE | 2016-10-04 18:15 | RADRPT ---
Vent Rate: 68 bpm RR Interval: 0 msec ND Interval: 162 msec QRS Duration: 70 msec QT Interval: 382 msec QTC Interval: 406 msec P-R-T [place]: 89 - 74 - 28 degrees Normal sinus rhythm Low voltage QRS Borderline ECG Electronically Signed By: Jimbo Cabezas [id number]
--- NOTE | 2016-10-04 20:04 | PN ---
DATE: 10/04/2016 SUBJECTIVE: The patient seen. Case was discussed with nursing staff. The patient was complaining earlier of abdominal pain. The patient with no diarrhea. The patient is alert. I asked her how fe els. She says she is not feeling very well. She could not specify why. PHYSICAL EXAMINATION: VITAL SIGNS: Temperature is 97.5, afebrile, pulse 62, respirations 18, blood pressure 131/69, satur ation 96% on 2 liters. GENERAL: The patient is pale. HEENT: Dry mucous membranes. CARDIOVASCULAR: S1 and S2. Regular rate. LUNGS: Mild rhonchi when coughing. CARDIOVASCULAR: Positive S1 and S2. Regular rate. ABDOMEN: Soft, nontender. EXTREMITIES: No clubbing, cyanosis, or edema. LABORATORY DATA: White count 7.3, hemoglobin 9.9. That was yesterday. BMP yesterday reviewed. Re spiratory cultures showed Gale albicans. MEDICATIONS: 1. Mucinex 600 b.i.d. 2. DuoNebs every 6 hours. 3. Robitussin-AC 5 mL q.4 p.r.n. 4. Vancomycin IV dose per pharmacy. 5. Bactroban b.i.d. to the nares. 6. Solu-Medrol 60 IV q.8h. 7. Diflucan 100 mg. 8. Requip 0.25 at bedtime. 9. Lovenox 40 mg daily. 10. Cefepime 1 gram q.12h. 11. Aspirin daily. 12. Calcium plus D 1 tab b.i.d. 13. Klonopin 0.5 t.i.d. 14. Neurontin 300 mg t.i.d. 15. Metoprolol 25 b.i.d. was held secondary to bradycardia. 16. Multivitamin 1 tablet daily. 17. Protonix 40 mg daily. 18. Hydralazine p.r.n. 19. Zofran p.r.n. 20. Tylenol p.r.n. 21. [place] p.r.n. 22. Colace p.r.n. 23. Milk of magnesia p.r.n. 24. Ambien p.r.n. IMAGING: CT scan of the chest was done on the . Results were reviewed. ASSESSMENT AND PLAN: This is a 80-year-old Citizen Of [place] female with history of dementia, anxiety disorde r, also multiple surgeries including orthopedic surgery, brain surgery, GI surgery, history of left humeral fracture status post recent ____, arrhythmias, paroxysmal atrial fibrillation who presented recently with urinary tract infection, sepsis, bacteremia, and pneumonia. Unfortunately, failed ou tpatient followup at home, now presented with left-sided pleural effusion with possible pneumonia. 1. Respiratory. Continue steroids. We will taper it down. Continue breathing treatments, O2 supp ort, antitussive medications. 2. Cardiovascular. The patient is seen by Dr. Rivera. Echocardiogram was ordered. Continue Loven ox for deep vein thrombosis prophylaxis, Lopressor. 3. Continue gastrointestinal prophylaxis with Protonix. 4. Monitor patient's p.o. intake. 5. Anxiety disorder, on low-dose Klonopin. 6. Infectious disease. The patient with recent bacteremia. Try to deescalate antibiotics, as the patient now on Diflucan, vancomycin, cefepime. Continue Bactroban for the nares for positive methic illin resistant Staphylococcus aureus on recent admission. 7. Physical therapy to continue to follow the patient. Will ask also possible transfer to acute re habilitation for ongoing physical therapy and monitor her respiratory condition. 8. Anemia. H and H remain stable. No need for transfusion. We will follow. Dictated By: ALEXANDER ROSADO/LIZ Conf#: [id number] DID#: [id number]
[2016-10-04] MEDS: ROPINIROLE 0.25 MG TAB PO SCH (20:25)
[2016-10-04] MEDS: ZOLPIDEM 5 MG TAB PO PRN (21:44)
[2016-10-04 22:52] VITALS: BP 130/62; RESP 16
[2016-10-05] MEDS: VANCOMYCIN 750 MG in SOD CHLORIDE 0.9% 150 ML IVPB SCH (00:07)
[2016-10-05] MEDS: HYDROCODONE/APAP (5/325) TAB PO PRN ×2 (01:47→20:19)
[2016-10-05] MEDS: PANTOPRAZOLE (EC) 40 MG TAB PO SCH (05:39)
[2016-10-05 05:50] LABS: ADD SCAN DIFF NO
[2016-10-05 06:08] LABS: ABNORMAL IP MESSAGE 1; HEMATOCRIT 28.8 % (37.0-47.0); HEMOGLOBIN 8.5 g/dl (12.0-16.0); LYMPHOCYTES # 0.6 10^3/ul (0.8-2.9); LYMPHOCYTES % 8.1 % (15.0-51.0); MEAN CORPUSCULAR HEMOGLOBIN 32.1 pg (29.0-33.0); MEAN CORPUSCULAR HGB CONC 29.5 g/dl (32.0-37.0); MEAN CORPUSCULAR VOLUME 108.7 fl (82.0-101.0); MEAN PLATELET VOLUME 10.3 fl (7.4-10.4); MONOCYTE # 0.1 10^3/ul (0.3-0.9); MONOCYTES % 1.8 % (0.0-11.0); NEUTROPHILS % 89.1 % (39.0-77.0); PLATELET COUNT 228 10^3/UL (140-415); RED BLOOD COUNT 2.65 10^6/ul (4.20-5.40); RED CELL DISTRIBUTION WIDTH 16.9 % (11.5-14.5); WHITE BLOOD COUNT 6.8 10^3/ul (4.8-10.8)
[2016-10-05 06:13] LABS: MAGNESIUM 2.3 mg/dl (1.7-2.5); PHOSPHORUS 3.3 mg/dl (2.5-4.9); POTASSIUM 3.4 mmol/L (3.5-5.1)
[2016-10-05 06:16] LABS: CREATININE 0.6 mg/dl (0.44-1.00)
[2016-10-05 06:17] LABS: CALCIUM 8.6 mg/dl (8.4-10.2)
--- NOTE | 2016-10-05 07:28 | PN ---
DATE: 10/04/2016 CARDIOLOGY FOLLOWUP SUBJECTIVE: Discussed with the staff. The patient with no chest pain or pressure. Still coughing, but much less and much improved. Denies any chest pain or pressure to me. MEDICATIONS: Reviewed. PHYSICAL EXAMINATION: VITAL SIGNS: Temperature 97.5, heart rate of 62, blood pressure 131/69, respiration rate 18, satura ting ____%. HEENT: Normocephalic, atraumatic. Pupils are equal. CARDIOVASCULAR: Regular rate and rhythm, systolic murmur. PULMONARY: Mild rhonchi. GASTROINTESTINAL: Soft. EXTREMITIES: With trivial edema. NEUROLOGIC: Awake, alert, oriented to person. PSYCHIATRIC: Calm. Echocardiogram was personally reviewed, which showed normal LV size and ejection fraction of about 6 5%. Grade I diastolic dysfunction. ____ tricuspid insufficiency. Normal right ventricular pressur e. ASSESSMENT AND PLAN: 1. Bronchitis/pneumonia/pulmonary congestion. 2. ?Congestive heart failure, diastolic dysfunction, currently appears to be stable enough ____. 3. Arrhythmia, is currently stable. 4. Hypertension. 5. Pancytopenia. 6. Dementia. RECOMMENDATIONS: We will continue the current cardiac antibiotics. Pulmonary care as per Dr. Lamb will be continued. Patient currently improving. Aspirin will be continued. Dictated By: JEAN MARIE DEWITT MD AV/LIZ Conf#: [id number] DID#: [id number] CC: ALEXANDER LAMB MD;*EndCC*
[2016-10-05 08:40] VITALS: BP 136/70; PULSE 66; RESP 20
[2016-10-05] MEDS: ALBUTEROL/IPRATROPIUM (NEB) 3 ML AMP NEB SCH ×3 (08:40→19:42)
[2016-10-05] MEDS: ASPIRIN (EC) 81 MG TAB PO SCH (08:44)
[2016-10-05] MEDS: GABAPENTIN 300 MG CAP PO SCH ×3 (08:44→20:24)
[2016-10-05] MEDS: CALCIUM/VITAMIN D (500/200) TAB PO SCH ×2 (08:44→20:24)
[2016-10-05] MEDS: clonAZEPAM 0.5 MG TAB PO SCH ×3 (08:44→20:24)
[2016-10-05] MEDS: METOPROLOL 25 MG TAB PO SCH ×2 (08:44→20:24)
[2016-10-05] MEDS: GUAIFENESIN LA 600 MG TABSR PO SCH ×2 (08:44→20:23)
[2016-10-05] MEDS: MULTIVITAMINS THERAPEUTIC TAB PO SCH (08:44)
[2016-10-05] MEDS: FLUCONAZOLE 100 MG TAB PO SCH (08:44)
[2016-10-05 08:45] VITALS: BP 136/70; RESP 20
[2016-10-05] MEDS: METHYLPREDNISOLONE 125 MG INJ IV SCH ×2 (08:45→20:26)
[2016-10-05] MEDS: CEFEPIME 2GM/50 ML (PMX) 50 ML IV SCH (08:46)
[2016-10-05] MEDS: ENOXAPARIN 40 MG/0.4 ML SYG SC SCH (08:47)
[2016-10-05] MEDS: MUPIROCIN 2% 22 GM OINT TOP SCH ×2 (08:48→20:26)
--- NOTE | 2016-10-05 11:00 | PN ---
DATE: 10/05/2016 CARDIOLOGY FOLLOWUP SUBJECTIVE: The patient is still coughing, is congested. Appears to be slightly improved. She den ies any chest pain or pressure to me. Denies any palpitation. MEDICATIONS: Reviewed. PHYSICAL EXAMINATION: VITAL SIGNS: Temperature 98.4, heart rate of 66, blood pressure 136/70, respiration rate of 20, sat urating 98%. HEENT: Normocephalic, atraumatic. Pupils are equal. CARDIOVASCULAR: Regular rate and rhythm. PULMONARY: With mild wheezes and diffuse rhonchi. GASTROINTESTINAL: Soft, nontender. EXTREMITIES: No significant edema. NEUROLOGIC: Awake, oriented to person. LABORATORY: WBC of 6.8, hemoglobin 8.5, platelets 228. Sodium 146, potassium 3.4, BUN of 23, creat inine 0.6, glucose 113. ASSESSMENT AND PLAN: 1. Bronchitis/pneumonia. 2. Possible mild congestive heart failure with diastolic dysfunction. 3. History of arrhythmia is currently stable. 4. Hypertension. 5. Anemia. 6. Encephalopathy. RECOMMENDATIONS: Pulmonary care will be continued. Antibiotic as per Dr. Aguilar will be continued a nd managed. Continue with aspirin and beta lucille as tolerated will be continued. Dictated By: JEAN MARIE NGUYEN/LIZ Conf#: [id number] DID#: [id number]
[2016-10-05] MEDS ORDERED: POTASSIUM CHLORIDE (SR) 20 MEQ TAB PO STA (14:20)
[2016-10-05] MEDS ORDERED: POTASSIUM CHLORIDE 250 ML IVPB ONE ×2 (14:30→16:00)
[2016-10-05] MEDS ORDERED: VANCOMYCIN 1 GM in NS 250 ML IVPB SCH (16:00)
--- NOTE | 2016-10-05 17:26 | PN ---
DATE: 10/05/2016 SUBJECTIVE: Patient seen, she still says she is not feeling well. She is still wheezing, complaini ng of shortness of breath. I had a long discussion with the patient's brother who stated that he vi sited her today and patient is more weak with no energy and still complaining of shortness of breath . I discussed with him the care in detail and the plan of care, and we decided to proceed with allen sfusion of 1 unit of PRBC, as patient is symptomatic, has symptomatic anemia, mild distress, debili ty, shortness of breath. Again also the brother requested me to transfuse her blood. PHYSICAL EXAMINATION: VITAL SIGNS: Temperature 98.4, pulse 71, respirations 18, blood pressure 136/70, saturation 96% on 2 liters. GENERAL: The patient is in no acute distress. The patient is pale, does not appear very happy, as she states that she is weak. No JVD. CARDIOVASCULAR: S1 and S2. LUNGS: Still mild to moderate wheezing and slight rhonchi. ABDOMEN: Soft, nontender. EXTREMITIES: There is no clubbing, cyanosis, or edema. LABORATORY DATA: Today shows a white count of 6.8, hemoglobin 5.5, hematocrit 28, platelet count 2 28, neutrophils 89%, lymphocytes 8%. Chemistry: Sodium is 146, potassium 3.4, chloride 107, bicarb nick 31, BUN is 22, creatinine 0.6, glucose of 113. Respiratory culture shows Gale albicans +1. MEDICATIONS: Include: 1. Vancomycin dose per pharmacy. 2. Cefepime 1 gram q.12 hours, which I would discontinue. 3. KCl IV x1. 4. Solu-Medrol 60 IV q.12h. 5. Mucinex 600 b.i.d. 6. DuoNeb every 6 hours. 7. Robitussin-AC p.r.n. for cough. 8. Bactroban b.i.d. to the nares. 9. Diflucan 100 mg daily. 10. Requip 0.25 ____ 11. Lovenox 40 mg subcutaneous daily. 12. Aspirin 81 mg daily. 13. Calcium plus D 1 tab b.i.d. 14. Klonopin 0.5 t.i.d. 15. Neurontin 300 t.i.d. 15. Lopressor 25 b.i.d. 16. Multivitamin 1 tab daily. 17. Protonix 40 mg daily. 18. Hydralazine p.r.n. 19. Zofran p.r.n. 20. Tylenol p.r.n. 21. [place] p.r.n. 22. Colace p.r.n. 23. Milk of magnesia p.r.n. 24. Ambien p.r.n. 25. DuoNeb as directed p.r.n. ASSESSMENT AND PLAN: This is an unfortunate 80-year-old [facility] female with history of dementia, an xiety disorder, multiple surgeries including brain, stomach, also status post left humerus fracture, status post repair, history of arrhythmia, paroxysmal atrial fibrillation who initially presented with urinary tract infection, sepsis, bacteremia and pneumonia. She failed outpatient followup at [facility] and treatment and now presents again with ongoing shortness of breath, left pleural effusion an d underlying pneumonia. 1. Respiratory. Taper down steroids. Continue breathing treatment, O2 support. Will transfuse he r a unit PRBCs. The patient is short of breath and weak. Continue RT to see medication. 2. Cardiovascular. Continue Lovenox for DVT prophylaxis. Continue Lopressor. 3. Gastrointestinal prophylaxis, on Protonix. 4. Monitor patient's p.o. intake, protein supplements to be provided. 5. Anxiety disorder. Continue Klonopin. The patient states also she has not been sleeping well. She wants me to increase her Ambien dose. 6. Infectious disease. De-escalate antibiotics, put her on oral Levaquin. Continue Diflucan, disc ontinue vancomycin and cefepime. Continue Bactroban to the nares. 7. Physical therapy to continue to assess the patient and refer her to the acute rehab at [facility] for ongoing therapy with the goal for her to go back to the assisted living facility. 8. Anemia. Will transfuse 1 unit of PRBCs. The patient is more symptomatic. Family is concerned. 9. Renal. Replace potassium. Continue supportive care. The patient does need a lot of care. Hop efully she can get better with acute rehabilitation. Otherwise, will have to transfer her to the [facility]. I had a conversation with the brother, Ethan. We will follow. Dictated By: ALEXANDER ROSADO/LIZ Conf#: [id number] DID#: [id number]
[2016-10-05] MEDS: ROPINIROLE 0.25 MG TAB PO SCH (20:23)
[2016-10-05 21:30] VITALS: BP 149/72; RESP 18
[2016-10-05] MEDS: ZOLPIDEM 5 MG TAB PO PRN (22:45)
[2016-10-06] MEDS: PANTOPRAZOLE (EC) 40 MG TAB PO SCH (05:38)
[2016-10-06] MEDS: LEVOFLOXACIN 500 MG TAB PO SCH (05:38)
[2016-10-06 05:54] LABS: ADD SCAN DIFF NO
[2016-10-06 05:59] LABS: ABNORMAL IP MESSAGE 1; HEMATOCRIT 30.9 % (37.0-47.0); HEMOGLOBIN 9.2 g/dl (12.0-16.0); LYMPHOCYTES # 0.6 10^3/ul (0.8-2.9); LYMPHOCYTES % 10.1 % (15.0-51.0); MEAN CORPUSCULAR HEMOGLOBIN 32.5 pg (29.0-33.0); MEAN CORPUSCULAR HGB CONC 29.8 g/dl (32.0-37.0); MEAN CORPUSCULAR VOLUME 109.2 fl (82.0-101.0); MONOCYTE # 0.1 10^3/ul (0.3-0.9); MONOCYTES % 1.6 % (0.0-11.0); NEUTROPHIL # 4.9 10^3/ul (1.6-7.5); NEUTROPHILS % 87.6 % (39.0-77.0); NUCLEATED RED BLOOD CELLS% 0.4 /100WBC (0.0-0.0); PLATELET COUNT 245 10^3/UL (140-415); RED BLOOD COUNT 2.83 10^6/ul (4.20-5.40); RED CELL DISTRIBUTION WIDTH 16.3 % (11.5-14.5); WHITE BLOOD COUNT 5.5 10^3/ul (4.8-10.8)
[2016-10-06 06:25] LABS: MAGNESIUM 2.3 mg/dl (1.7-2.5); PHOSPHORUS 3.3 mg/dl (2.5-4.9)
[2016-10-06 06:33] LABS: POTASSIUM 4.5 mmol/L (3.5-5.1)
[2016-10-06 06:35] LABS: CREATININE 0.54 mg/dl (0.44-1.00)
[2016-10-06 06:36] LABS: CALCIUM 8.9 mg/dl (8.4-10.2)
[2016-10-06] MEDS: ALBUTEROL/IPRATROPIUM (NEB) 3 ML AMP NEB SCH ×3 (07:33→21:20)
[2016-10-06] MEDS: GUAIFENESIN LA 600 MG TABSR PO SCH ×2 (08:18→20:34)
[2016-10-06] MEDS: ASPIRIN (EC) 81 MG TAB PO SCH (08:18)
[2016-10-06] MEDS: clonAZEPAM 0.5 MG TAB PO SCH ×3 (08:18→20:35)
[2016-10-06] MEDS: GABAPENTIN 300 MG CAP PO SCH ×3 (08:18→20:34)
[2016-10-06] MEDS: FLUCONAZOLE 100 MG TAB PO SCH (08:18)
[2016-10-06] MEDS: CALCIUM/VITAMIN D (500/200) TAB PO SCH ×2 (08:18→20:34)
[2016-10-06] MEDS: MULTIVITAMINS THERAPEUTIC TAB PO SCH (08:19)
[2016-10-06] MEDS: ENOXAPARIN 40 MG/0.4 ML SYG SC SCH (08:19)
[2016-10-06] MEDS: MUPIROCIN 2% 22 GM OINT TOP SCH ×2 (09:00→20:35)
[2016-10-06] MEDS: METOPROLOL 25 MG TAB PO SCH ×2 (09:00→20:34)
[2016-10-06] MEDS: METHYLPREDNISOLONE 125 MG INJ IV SCH ×2 (09:00→20:34)
[2016-10-06] MEDS: HYDROCODONE/APAP (5/325) TAB PO PRN (10:23)
--- NOTE | 2016-10-06 10:54 | PN ---
DATE: 10/06/2016 CARDIOLOGY FOLLOWUP SUBJECTIVE: No new cardiac event. Patient still with cough. Shortness of breath has improved. Sh e has been transfused. No active bleeding is reported. Discussed with the staff. MEDICATIONS: Reviewed as per medical reconciliation, personally reviewed. PHYSICAL EXAMINATION: VITAL SIGNS: Temperature 97.5, heart rate of 68, blood pressure 149/72, respiratory rate of 12, sat urating 97%. HEENT: Normocephalic, atraumatic. Pupils are equal. CARDIOVASCULAR: Regular rate and rhythm, systolic murmur. PULMONARY: With no wheezes heard, mild rhonchi, diffuse. GASTROINTESTINAL: Soft, nontender. EXTREMITIES: Trivial edema. NEUROLOGIC: Awake, oriented to person. PSYCHIATRIC: Appears to be calm. LABORATORY: WBC of 5.5, hemoglobin 9.2, platelets of 245. Sodium 146, potassium 4.5, BUN of 22, cr eatinine 0.54, glucose 112, magnesium is 2.3. ASSESSMENT AND PLAN: 1. Bronchitis and pneumonia. 2. Possible mild congestive heart failure, diastolic dysfunction, currently appears to be euvolemic . 3. History of arrhythmia, currently stable. 4. Hypertension, under good control. 5. Anemia, status post transfusion. 6. Encephalopathy and dementia. RECOMMENDATIONS: We will continue with the pulmonary care as per Dr. Lamb. Antibiotic is again be ing managed as per internal medicine. Beta lucille will be continued as tolerated. Aspirin will be continued. Diuresis p.r.n. will be given, currently appears to be stable. Dictated By: JEAN MARIE DEWITT MD AV/NTS Conf#: [id number] DID#: [id number] CC: ALEXANDER LAMB MD;*EndCC*
--- NOTE | 2016-10-06 19:05 | PN ---
DATE: 10/06/2016 The patient did not receive a transfusion. I am not sure why, possibly there was no consent of my s ignature. Again, I was just informed of that this morning, and my order was placed yesterday. Overa ll, the patient feels the same. She feels weak, complaining of total body pain, still has shortness of breath and ongoing cough. PHYSICAL EXAMINATION: VITAL SIGNS: Temperature is 97.5, pulse 70, respirations 16, blood pressure was 149/72, saturation 95% on 2 liters. GENERAL: The patient is in no acute distress, appears anxious. Patient is pale. CARDIOVASCULAR: S1 and S2, regular rate. LUNGS: Mild rhonchi bilaterally. ABDOMEN: Soft, nontender. EXTREMITIES: No clubbing, cyanosis, or edema. LABORATORY DATA: White count is 5.5, hemoglobin 9.2, hematocrit 31, platelet count 245, neutrophils 88%, lymphocytes 10%. Chemistry: Sodium is 146, potassium 4.5, chloride 107, bicarbonate 31, BUN is 22, creatinine 0.54, glucose 112. Respiratory culture shows Gale albicans. Blood cultures we re negative. MEDICATIONS: Include: 1. Levaquin 500 daily. 2. Ambien 10 at bedtime p.r.n. 3. Solu-Medrol 60 IV daily q.12h. 4. Mucinex 600 b.i.d. 5. DuoNeb q.6h 6. Robitussin-AC p.r.n. 7. Bactroban b.i.d. topically. 8. Diflucan 100 mg daily. 9. Requip 0.25 at bedtime. 10. Lovenox 40 mg subq every day. 11. Aspirin 81 mg daily. 12. Calcium plus D 1 tab b.i.d. 13. Clonazepam 0.5 t.i.d. 14. Neurontin 300 t.i.d. 15. Lopressor 25 b.i.d. 16. Multivitamin 1 tablet daily. 17. Protonix 40 mg daily. 18. Hydralazine p.r.n. 19. Zofran p.r.n. 20. Tylenol p.r.n. 21. [place] p.r.n. 22. Colace p.r.n. 23. Milk of magnesia p.r.n. 21. DuoNeb as directed. ASSESSMENT AND PLAN: This is a very unfortunate 80-year-old Maltese female with history of dementia , anxiety disorder, multiple surgeries including brain surgery, stomach, status post left femur frac ture status post repair, history of arrhythmia, paroxysmal atrial fibrillation who presented with u rinary tract infection, sepsis, bacteremia, pneumonia, recently discharged and now came back with in creased congestion and was found to have still persistent left pleural effusion, atelectasis and/or pneumonia. 1. Respiratory. Continue tapering down steroids. Continue breathing treatment. Continue antibiot ics with Levaquin. May consider [facility] transfer and pulmonary consult. 2. Cardiovascular: Continue Lovenox for deep vein thrombosis prophylaxis. Continue Lopressor. Ca rdiology is following. 3. Gastrointestinal on Protonix. 4. Anxiety disorder, on Klonopin. 5. Anemia. Monitor hemoglobin and hematocrit. We will continue to monitor. May consider getting the transfusion depending patient's ongoing symptoms. I will try ____ for another one day, as it wa s not given yesterday. 6. Physical therapy to continue to see the patient. Overall, the patient appears to be very weak. Awaiting placement as well in the rehabilitation unit. 7. Renal. Monitor electrolytes, monitor the patient's p.o. intake. As of note, I am not sure why the nurse called me this morning since she did not accept my orders to transfuse the patient and she asked me in the morning to transfuse the patient, so this was very unclear as she will call me fany maya in the morning, so completely did not make sense her phone call to me this morning. Dictated By: ALEXANDER ROSADO/LIZ Conf#: [id number] DID#: [id number]
[2016-10-06] MEDS: ROPINIROLE 0.25 MG TAB PO SCH (20:34)
[2016-10-06 22:04] VITALS: BP 134/76; RESP 19
[2016-10-07] MEDS: LEVOFLOXACIN 500 MG TAB PO SCH (06:16)
[2016-10-07] MEDS: PANTOPRAZOLE (EC) 40 MG TAB PO SCH (06:16)
[2016-10-07] MEDS: ALBUTEROL/IPRATROPIUM (NEB) 3 ML AMP NEB SCH ×3 (07:35→20:13)
[2016-10-07 08:39] VITALS: BP 183/84; RESP 20
[2016-10-07] MEDS: MULTIVITAMINS THERAPEUTIC TAB PO SCH (08:51)
[2016-10-07] MEDS: GABAPENTIN 300 MG CAP PO SCH ×3 (08:51→20:40)
[2016-10-07] MEDS: ASPIRIN (EC) 81 MG TAB PO SCH (08:51)
[2016-10-07] MEDS: CALCIUM/VITAMIN D (500/200) TAB PO SCH ×2 (08:51→20:40)
[2016-10-07] MEDS: clonAZEPAM 0.5 MG TAB PO SCH ×3 (08:51→20:41)
[2016-10-07] MEDS: FLUCONAZOLE 100 MG TAB PO SCH (08:51)
[2016-10-07] MEDS: GUAIFENESIN LA 600 MG TABSR PO SCH ×2 (08:51→20:40)
[2016-10-07] MEDS: METHYLPREDNISOLONE 125 MG INJ IV SCH (08:52)
[2016-10-07] MEDS: METOPROLOL 25 MG TAB PO SCH ×2 (08:52→20:41)
[2016-10-07] MEDS: ENOXAPARIN 40 MG/0.4 ML SYG SC SCH (08:57)
[2016-10-07] MEDS: MUPIROCIN 2% 22 GM OINT TOP SCH ×2 (08:59→20:45)
[2016-10-07 11:42] VITALS: BP 148/80; PULSE 60
[2016-10-07 16:00] VITALS: BP 116/68; PULSE 63; RESP 16
--- NOTE | 2016-10-07 17:00 | PN ---
DATE: 10/07/2016 SUBJECTIVE: The patient seen at bedside. She looks better. She is not coughing as much. She is c omplaining of dizziness and headaches. She is not feeling well. Phone discussion with the brother, the patient said that she is quite depressed and stated to him that she does not want live in this way. Overall, the patient is debilitated and weak as noted by the physical therapist recommendation s. Also, I had discussed the case with Jena, the employment evaluator/case manager, regarding placement as patient nidia lozano would benefit from custodial facility placement. Options were discussed with both case management and the brother. PHYSICAL EXAMINATION: VITAL SIGNS: Temperature is 97.9, pulse 73, respirations 18, blood pressure 148/80, saturation 98% on 2 liters. GENERAL: In no acute distress. HEENT: Normocephalic, atraumatic. The patient is pale, does not seem too happy. CARDIOVASCULAR: S1 and S2. LUNGS: Faint wheezing improving, almost resolved. ABDOMEN: Soft, nontender. EXTREMITIES: No clubbing, cyanosis, or edema. LABORATORY DATA: No new labs. Labs yesterday showed a white count of 5.5, hemoglobin 9.2. BUN and creatinine were 22/0.54. MEDICATIONS: Reviewed and include: 1. Levaquin 500 mg daily. 2. Ambien 10 mg at bedtime p.r.n. 3. Solu-Medrol 60 IV q.12h. 4. Mucinex 600 b.i.d. 5. DuoNeb q.6h. around the clock. 6. Robitussin p.r.n. 7. Bactroban b.i.d. 8. Diflucan 100 mg daily. 9. Requip 0.25 at bedtime. 10. Lovenox 40 mg subcutaneous daily. 11. Aspirin 81 daily. 12. Calcium plus D 1 tab b.i.d. 13. Klonopin 0.5 t.i.d. 14. Neurontin 300 t.i.d. 15. Lopressor 25 b.i.d. 16. Multivitamin 1 tablet daily. 17. Protonix 40 mg daily. 18. Hydralazine p.r.n. 19. Zofran p.r.n. 20. Tylenol p.r.n. 21. [place] p.r.n. 22. Colace p.r.n. 23. Milk of magnesia p.r.n. 24. DuoNeb p.r.n. ASSESSMENT AND PLAN: This is a 80-year-old Indian female with history of dementia, anxiety disorde r, multiple surgeries, presented with recently with urinary tract infection, sepsis and bacteremia, also pneumonia, now came back again with persistent cough and left-sided pneumonia, bronchitis. 1. Respiratory, doing better. Taper down steroids to Solu-Medrol 40 mg subcutaneous q.12. Continu e breathing treatment. Continue oral Levaquin. Clinically improved. Continue antitussive medicati ons. 2. Cardiovascular. Remains on deep venous thrombosis prophylaxis with Lovenox. Cardiology is foll owing. Hemodynamically stable. 3. Continue gastrointestinal prophylaxis with Protonix. 4. Anxiety, on Klonopin. We will add Lexapro for depression. 5. Anemia. Hemoglobin and hematocrit are stable. Monitor H and H. The patient has not received a transfusion. If H and H are low, we will transfuse as the patient is very weak. We will follow. 6. Physical therapy to continue to see patient. snf facility placement is pending. 7. Renal. Monitor electrolytes. 8. Dizziness. This may be secondary to dehydration. We will obtain a carotid ultrasound. Headach es may be due to her cough. We will observe and monitor closely. Dictated By: ALEXANDER ROSADO/LIZ Conf#: [id number] DID#: [id number]
--- NOTE | 2016-10-07 17:04 | RADRPT ---
PROCEDURE: US Carotids. CLINICAL INDICATION: Dizziness TECHNIQUE: Multiple sonographic of the carotid arteries were obtained utilizing rivera scale imaging . Color and Doppler imaging was performed. The images were reviewed on a PACS workstation. COMPARISON: No prior studies are available for comparison. FINDINGS: Location Right Left CCA 76 cm/sec 63 cm/sec Prox ICA 45 cm/sec 38 cm/sec Mid ICA 50 cm/sec 54 cm/sec Dist ICA 31 cm/sec 27 cm/sec ECA 33 cm/sec 40 cm/sec ICA/CCA 1.2 1.5 Antegrade flow is seen within the vertebral arteries bilaterally. Minimal scattered plaque is seen w ithin the carotid system bilaterally. However, there is no evidence for hemodynamically significant stenosis or occlusion identified. IMPRESSION: 1. Minimal scattered plaque without evidence for hemodynamically significant stenosis or occlusion. 2. Antegrade flow seen within the vertebral arteries bilaterally. RPTAT: JJ .Jesse Duffy MD, MD Date Time Electronically viewed and signed by .Jesse Duffy MD, on 10/07/2016 17:04 .A/
[2016-10-07 20:35] VITALS: BP 138/71; RESP 20
[2016-10-07] MEDS: METHYLPREDNISOLONE 40 MG INJ IV SCH (20:40)
[2016-10-07] MEDS: ROPINIROLE 0.25 MG TAB PO SCH (20:41)
[2016-10-07] MEDS: ZOLPIDEM 5 MG TAB PO PRN (22:23)
[2016-10-08] MEDS: HYDROCODONE/APAP (5/325) TAB PO PRN (00:51)
[2016-10-08] MEDS: ACETAMINOPHEN 325 MG TAB PO PRN (03:12)
[2016-10-08] MEDS: PANTOPRAZOLE (EC) 40 MG TAB PO SCH (05:36)
[2016-10-08] MEDS: LEVOFLOXACIN 500 MG TAB PO SCH (05:36)
[2016-10-08 06:28] LABS: ADD SCAN DIFF NO
[2016-10-08 06:32] LABS: ABNORMAL IP MESSAGE 1; HEMATOCRIT 29.7 % (37.0-47.0); HEMOGLOBIN 9.3 g/dl (12.0-16.0); LYMPHOCYTES # 0.4 10^3/ul (0.8-2.9); LYMPHOCYTES % 8.5 % (15.0-51.0); MEAN CORPUSCULAR HEMOGLOBIN 33.3 pg (29.0-33.0); MEAN CORPUSCULAR HGB CONC 31.3 g/dl (32.0-37.0); MEAN CORPUSCULAR VOLUME 106.5 fl (82.0-101.0); MEAN PLATELET VOLUME 10.2 fl (7.4-10.4); MONOCYTE # 0.1 10^3/ul (0.3-0.9); MONOCYTES % 2.1 % (0.0-11.0); NEUTROPHIL # 4.2 10^3/ul (1.6-7.5); NEUTROPHILS % 88.8 % (39.0-77.0); PLATELET COUNT 255 10^3/UL (140-415); RED BLOOD COUNT 2.79 10^6/ul (4.20-5.40); RED CELL DISTRIBUTION WIDTH 16.3 % (11.5-14.5); WHITE BLOOD COUNT 4.7 10^3/ul (4.8-10.8)
[2016-10-08 06:48] LABS: MAGNESIUM 2.3 mg/dl (1.7-2.5)
[2016-10-08 07:14] LABS: POTASSIUM 3.9 mmol/L (3.5-5.1)
[2016-10-08 07:17] LABS: CREATININE 0.5 mg/dl (0.44-1.00)
[2016-10-08 07:18] LABS: CALCIUM 8.8 mg/dl (8.4-10.2)
[2016-10-08 07:40] VITALS: BP 139/71; RESP 16
[2016-10-08] MEDS: GABAPENTIN 300 MG CAP PO SCH ×3 (08:59→21:54)
[2016-10-08] MEDS: FLUCONAZOLE 100 MG TAB PO SCH (08:59)
[2016-10-08] MEDS: CALCIUM/VITAMIN D (500/200) TAB PO SCH ×2 (08:59→21:55)
[2016-10-08] MEDS: ESCITALOPRAM 10 MG TAB PO SCH (08:59)
[2016-10-08] MEDS: ASPIRIN (EC) 81 MG TAB PO SCH (09:00)
[2016-10-08] MEDS: clonAZEPAM 0.5 MG TAB PO SCH ×3 (09:00→21:51)
[2016-10-08] MEDS: MULTIVITAMINS THERAPEUTIC TAB PO SCH (09:00)
[2016-10-08] MEDS: METOPROLOL 25 MG TAB PO SCH ×2 (09:00→21:55)
[2016-10-08] MEDS: GUAIFENESIN LA 600 MG TABSR PO SCH ×2 (09:00→21:55)
[2016-10-08] MEDS: METHYLPREDNISOLONE 40 MG INJ IV SCH (09:00)
[2016-10-08] MEDS: ALBUTEROL/IPRATROPIUM (NEB) 3 ML AMP NEB SCH ×3 (09:01→19:34)
[2016-10-08] MEDS: ENOXAPARIN 40 MG/0.4 ML SYG SC SCH (09:08)
[2016-10-08] MEDS: MUPIROCIN 2% 22 GM OINT TOP SCH ×2 (09:09→21:53)
--- NOTE | 2016-10-08 12:56 | PN ---
DATE: 10/08/2016 SUBJECTIVE: The patient seen complaining of overall generalized back pain and insomnia despite havi ng Ambien 10 mg at night. The patient overall looks better. Cough is subsiding. PHYSICAL EXAMINATION: VITAL SIGNS: Temperature 98.1, pulse 66, respirations 18, blood pressure 139/71, saturation 98% on 2 liters. GENERAL: The patient is in no acute distress. The patient is pale, frail. CARDIOVASCULAR: S1 and S2. LUNGS: Faint rhonchi resolving. ABDOMEN: Soft, nontender. EXTREMITIES: No clubbing, cyanosis, or edema. The patient moving all extremities. LABORATORY DATA: White count 4.7, hemoglobin 9.3, hematocrit 30, platelets 255, neutrophils 89%, ly mphocytes 9%. Chemistry: Sodium is 141, potassium 3.9, chloride 101, bicarbonate 33, BUN is 21, cr eatinine 0.5, glucose 122. Magnesium 2.3, phosphorus 4.0. Respiratory culture on admission shows C andida albicans. Carotid Doppler shows minimal scattered plaque without evidence of hemodynamically significant steno sis or occlusion. CURRENT MEDICATIONS: Include the followin. Lexapro 5 mg daily. 2. Solu-Medrol 40 IV q.12h. 3. Levaquin 5 mg daily. 4. Ambien 10 mg at bedtime p.r.n. 5. Mucinex 600 b.i.d. 6. DuoNeb every 6 hours. 7. Robitussin-AC q.4h. p.r.n. 8. Bactroban b.i.d. 9. Diflucan 100 mg daily. 10. Requip 0.25 at bedtime. 11. Lovenox 40 mg subcutaneous daily. 12. Aspirin 81 mg daily. 13. Calcium plus D 1 tab b.i.d. 14. Klonopin 0.5 t.i.d. 15. Gabapentin 300 t.i.d. 16. Lopressor 25 mg b.i.d. 17. Multivitamin 1 tablet daily. 18. Protonix 40 mg daily. 19. Hydralazine p.r.n. 20. Zofran p.r.n. 21. Tylenol p.r.n. 22. [place] p.r.n. 23. Colace p.r.n. 24. Milk of magnesia p.r.n. 23. DuoNeb p.r.n. ASSESSMENT AND PLAN: This is a 80-year-old [place] Konger female with history of dementia, anxiety disorde r, multiple surgeries, presented recently with urinary tract infection, sepsis and bacteremia, also pneumonia. Came back again with persistent cough and ongoing left-sided pneumonia and bronchitis. 1. Respiratory, doing better. Responded well to steroids, antibiotics and breathing treatments. C linically much better. Taper steroids down and we will follow. 2. Cardiovascular. Continue Lovenox for DVT prophylaxis. Continue aspirin for cardiac protection. Continue blood pressure medications. 3. Continue gastrointestinal prophylaxis. 4. Insomnia. Add trazodone at night. Continue Ambien p.r.n. 5. For anxiety, continue Klonopin and I added Lexapro for depression. 6. Anemia. Hemoglobin and hematocrit stable. Currently no need for transfusion. 7. Physical therapy as tolerated. The patient definitely needs higher level of care as patient is very weak, which is now the main issue. 8. Chronic back pain. Start the patient on Tylenol twice a day. 9. Dizziness, carotid ultrasound negative. Encourage hydration. 10. Continue Diflucan for Gale in the sputum. 11. Case discussed with the brother yesterday. We are awaiting penitentiary placement per his deci pillo. We will follow. Dictated By: ALEXANDER ROSADO/LIZ Conf#: [id number] DID#: [id number]
[2016-10-08 20:53] VITALS: BP 138/76; RESP 19
[2016-10-08] MEDS ORDERED: traZODone 50 MG TAB PO SCH (21:00)
[2016-10-08] MEDS: ROPINIROLE 0.25 MG TAB PO SCH (21:50)
[2016-10-08] MEDS: ACETAMINOPHEN 500 MG TAB PO SCH (21:52)
[2016-10-08] MEDS: ZOLPIDEM 5 MG TAB PO PRN (23:28)
[2016-10-09] MEDS: ACETAMINOPHEN 325 MG TAB PO PRN (05:48)
[2016-10-09] MEDS: LEVOFLOXACIN 500 MG TAB PO SCH (05:49)
[2016-10-09] MEDS: PANTOPRAZOLE (EC) 40 MG TAB PO SCH (05:49)
[2016-10-09 08:28] VITALS: BP 147/75; RESP 20
[2016-10-09] MEDS: GUAIFENESIN LA 600 MG TABSR PO SCH ×2 (08:33→21:26)
[2016-10-09] MEDS: CALCIUM/VITAMIN D (500/200) TAB PO SCH ×2 (08:33→21:26)
[2016-10-09] MEDS: FLUCONAZOLE 100 MG TAB PO SCH (08:33)
[2016-10-09] MEDS: MULTIVITAMINS THERAPEUTIC TAB PO SCH (08:33)
[2016-10-09] MEDS: ACETAMINOPHEN 500 MG TAB PO SCH ×2 (08:34→21:27)
[2016-10-09] MEDS: ASPIRIN (EC) 81 MG TAB PO SCH (08:34)
[2016-10-09] MEDS: GABAPENTIN 300 MG CAP PO SCH ×3 (08:34→21:26)
[2016-10-09] MEDS: ESCITALOPRAM 10 MG TAB PO SCH (08:34)
[2016-10-09] MEDS: clonAZEPAM 0.5 MG TAB PO SCH ×3 (08:34→21:26)
[2016-10-09] MEDS: METOPROLOL 25 MG TAB PO SCH ×2 (08:35→21:26)
[2016-10-09] MEDS: ENOXAPARIN 40 MG/0.4 ML SYG SC SCH (08:36)
[2016-10-09] MEDS: MUPIROCIN 2% 22 GM OINT TOP SCH ×2 (08:37→21:27)
[2016-10-09] MEDS: ALBUTEROL/IPRATROPIUM (NEB) 3 ML AMP NEB SCH ×3 (08:44→21:48)
[2016-10-09] MEDS ORDERED: METHYLPREDNISOLONE 40 MG INJ IV SCH (09:00)
[2016-10-09] MEDS ORDERED: SOD CHLORIDE 0.9% 500 ML IV ONE (15:00)
[2016-10-09] MEDS: HYDROCODONE/APAP (5/325) TAB PO PRN ×2 (16:22→23:14)
--- NOTE | 2016-10-09 17:22 | PN ---
DATE: 10/09/2016 Patient seen complaining of dizziness and insomnia. Case discussed in detail with this brother, Ron lucero regarding placement. He agreed to send [facility] to the [facility] when stable. PHYSICAL EXAMINATION: VITAL SIGNS: Temperature 97.6, pulse 89, respirations 18, blood pressure 147/75, saturation 97% on room air. GENERAL: No acute distress. Patient is grimacing. She is complaining of dizziness. Otherwise, no o ther complaints. Wants more sleeping pills at night. The patient is pale. CARDIOVASCULAR: S1 and S2, regular rate. LUNGS: Clear. ABDOMEN: Soft, nontender. EXTREMITIES: No clubbing, cyanosis, or edema. LABORATORY DATA: No new labs today. Labs yesterday were reviewed. BUN and creatinine were 21/0.5. CURRENT MEDICATIONS: Include the followin. Solu-Medrol 40 mg daily. 2. Tylenol b.i.d. 500. 3. Trazodone 25 at night. 4. Lexapro 5 mg daily. 5. Levaquin 5 mg daily. 6. Ambien 10 mg at bedtime p.r.n. 7. Mucinex 600 b.i.d. 8. DuoNeb q.6h 9. Robitussin q.4h. p.r.n. 10. Bactroban b.i.d. 11. Diflucan 100 mg daily. 12. Requip 0.25 is bedtime. 13. Lovenox 40 mg every day. 14. Aspirin 81 mg daily. 15. Calcium plus D 1 tab b.i.d. 16. Klonopin 0.5 t.i.d. 17. Neurontin 300 t.i.d. 18. Lopressor 25 b.i.d. 19. Multivitamin 1 tablet daily. 20. Protonix 40 mg daily. 21. Hydralazine p.r.n. 22. Zofran p.r.n. 23. Tylenol p.r.n. 24. [place] p.r.n. 25. Colace p.r.n. 26. Milk of magnesia p.r.n. 27. DuoNeb p.r.n. ASSESSMENT AND PLAN: This is a 80-year-old [place] Islander female with history of dementia, anxiety disorde r, multiple surgeries, status post recent urinary tract infection and pneumonia and bacteremia, now presented with increasing cough and acute bronchitis. 1. Respiratory, much better. Taper off steroids. Continue breathing treatments, O2 support for no w. 2. Cardiovascular. Stable. Continue aspirin for cardiac protection. Vital signs are normal. 3. Continue gastrointestinal prophylaxis. 4. Insomnia. Increase trazodone to 50 mg. Continue p.r.n. Ambien. May continue Seroquel. 6. Anxiety, on Klonopin and Lexapro. 7. Anemia. Hemoglobin and hematocrit stable. No need for transfusion. Follow up a.m. CBC. 8. Physical therapy as tolerated. 9. Dizziness. The patient may be orthostatic. We will give her a bolus of 500 mL over a few hours and observe. Patient clinically appears to be more dry. 10. Continue Diflucan for Gale in the sputum. [facility] [facility] as patient is very debilitated and weak, hopefully tomorrow to [facility]. We will follow. Dictated By: ALEXANDER ROSADO/LIZ Conf#: [id number] DID#: [id number]
[2016-10-09] MEDS ORDERED: traZODone 50 MG TAB PO SCH (21:00)
[2016-10-09] MEDS: ROPINIROLE 0.25 MG TAB PO SCH (21:26)
[2016-10-09 21:45] VITALS: BP 133/75
[2016-10-09 22:48] VITALS: BP 135/72; RESP 20
[2016-10-10] MEDS: LEVOFLOXACIN 500 MG TAB PO SCH (05:20)
[2016-10-10] MEDS: PANTOPRAZOLE (EC) 40 MG TAB PO SCH (05:20)
[2016-10-10] MEDS: HYDROCODONE/APAP (5/325) TAB PO PRN ×2 (05:21→17:15)
[2016-10-10 05:56] LABS: ADD SCAN DIFF NO
[2016-10-10 06:12] LABS: POTASSIUM 3.9 mmol/L (3.5-5.1)
[2016-10-10 06:15] LABS: CREATININE 0.49 mg/dl (0.44-1.00)
[2016-10-10 06:16] LABS: CALCIUM 8.6 mg/dl (8.4-10.2)
[2016-10-10 06:21] LABS: BASOPHILS % 0.2 % (0.0-2.0); EOSINOPHILS % 0.2 % (0.0-7.0); HEMATOCRIT 30.9 % (37.0-47.0); HEMOGLOBIN 9.2 g/dl (12.0-16.0); LYMPHOCYTES # 0.9 10^3/ul (0.8-2.9); LYMPHOCYTES % 16.9 % (15.0-51.0); MEAN CORPUSCULAR HEMOGLOBIN 32.9 pg (29.0-33.0); MEAN CORPUSCULAR HGB CONC 29.8 g/dl (32.0-37.0); MEAN CORPUSCULAR VOLUME 110.4 fl (82.0-101.0); MEAN PLATELET VOLUME 10.4 fl (7.4-10.4); MONOCYTE # 0.2 10^3/ul (0.3-0.9); MONOCYTES % 4.1 % (0.0-11.0); NEUTROPHILS % 77.8 % (39.0-77.0); PLATELET COUNT 204 10^3/UL (140-415); RED CELL DISTRIBUTION WIDTH 16.8 % (11.5-14.5); WHITE BLOOD COUNT 5.2 10^3/ul (4.8-10.8)
[2016-10-10 06:38] LABS: MAGNESIUM 2.3 mg/dl (1.7-2.5); PHOSPHORUS 3.6 mg/dl (2.5-4.9)
[2016-10-10 07:45] VITALS: BP 132/71; RESP 16
[2016-10-10] MEDS: ALBUTEROL/IPRATROPIUM (NEB) 3 ML AMP NEB SCH ×2 (07:52→14:11)
--- NOTE | 2016-10-10 08:13 | PN ---
DATE: 10/07/2016 CARDIOLOGY FOLLOWUP PROGRESS NOTE SUBJECTIVE: Discussed with the staff. The patient appears to be still confused. Denies any chest pain or pressure to me. He states that does not feel well, but he could not describe anything to me. MEDICATIONS: Reviewed. PHYSICAL EXAMINATION: VITAL SIGNS: Temperature 97.9, heart rate of 62, blood pressure this morning was 180/80, has been r unning around 130s mostly. Respiration rate of 20, saturating 96%. HEENT: Normocephalic, atraumatic. Pupils are equal. CARDIOVASCULAR: Regular rate and rhythm, systolic murmur. PULMONARY: With no wheezes anteriorly, mild rhonchi at the base. GASTROINTESTINAL: Soft, nontender. EXTREMITIES: ____ edema. NEUROLOGIC: Awake, oriented to person. PSYCHIATRIC: Appeared to be anxious, otherwise stable. LABORATORY: 1. Pneumonia/bronchitis. 2. Possibly mild congestive heart failure ____ diastolic dysfunction, currently does not appear to be fluid overloaded 3. History of arrhythmias. 4. Hypertension, mostly under good control. 5. Anemia, status post transfusion. 6. Encephalopathy and dementia. RECOMMENDATIONS: 1. Antibiotic and pulmonary care is being managed as per Dr. Lamb. 2. Deep vein thrombosis prophylaxis, will be continued on aspirin. 3. Beta lucille will be continued as tolerated. 4. Diuresis as needed will be given only. Dictated By: JEAN MARIE DEWITT MD AV/LIZ Conf#: [id number] DID#: [id number] CC: ALEXANDER LAMB MD;*End*
[2016-10-10] MEDS: GUAIFENESIN LA 600 MG TABSR PO SCH (08:56)
[2016-10-10] MEDS: CALCIUM/VITAMIN D (500/200) TAB PO SCH (08:56)
[2016-10-10] MEDS: MULTIVITAMINS THERAPEUTIC TAB PO SCH (08:56)
[2016-10-10] MEDS: clonAZEPAM 0.5 MG TAB PO SCH ×2 (08:56→12:46)
[2016-10-10] MEDS: ASPIRIN (EC) 81 MG TAB PO SCH (08:56)
[2016-10-10] MEDS: ESCITALOPRAM 10 MG TAB PO SCH (08:56)
[2016-10-10] MEDS: METOPROLOL 25 MG TAB PO SCH (08:57)
[2016-10-10] MEDS: GABAPENTIN 300 MG CAP PO SCH ×2 (08:57→12:46)
[2016-10-10] MEDS: ACETAMINOPHEN 500 MG TAB PO SCH (08:57)
[2016-10-10] MEDS: FLUCONAZOLE 100 MG TAB PO SCH (08:57)
[2016-10-10] MEDS: ENOXAPARIN 40 MG/0.4 ML SYG SC SCH (08:59)
[2016-10-10] MEDS: MUPIROCIN 2% 22 GM OINT TOP SCH (09:00)
--- NOTE | 2016-10-10 13:53 | PDOCDIS ---
Discharge Instructions CONDITION Patient Condition: Stable HOME CARE INSTRUCTIONS: Special Diet: mechanical soft diet ACTIVITY: Activity Restrictions: Slowly Increase Activity FOLLOW UP/APPOINTMENTS Appointments o2 as needed to keep sat >90, [facility], see reconciliation , PT/OT at the [facility] ALEXANDER LAMB MD Oct 10, 2016 13:53
--- NOTE | 2016-10-10 19:46 | PN ---
DATE: 10/10/2016 SUBJECTIVE: No new cardiac event. The patient with no reported chest pain or pressure. Pain appea red to be stable. She appeared to be also less orthostatic. Rhythm strip was reviewed. Discussed with the staff. MEDICATIONS: Reviewed. PHYSICAL EXAMINATION: VITAL SIGNS: Temperature 97.8, heart rate of 68, blood pressure 130/71, respiratory rate of 20, sat urating 98%. HEENT: Normocephalic, atraumatic. No acute distress. Pupils are equal. CARDIOVASCULAR: Regular rate and rhythm. Systolic murmur. PULMONARY: No wheezes heard now. No rhonchi. GASTROINTESTINAL: Soft, nontender. EXTREMITIES: No significant lower extremity edema. NEUROLOGIC: Awake, oriented to person at least. PSYCHIATRIC: Appeared to be anxious. LABORATORY: WBC of 5.2, hemoglobin 9.2, platelets of 204. Sodium 144, potassium 3.9, BUN of 20, cr eatinine 0.49, glucose of 90. ASSESSMENT AND PLAN: 1. Bronchitis/pneumonia, currently feeling significantly improved. 2. Questionable congestive heart failure. Currently does not appear to be fluid overloaded. Stabl e. 3. History of arrhythmia, currently stable. 4. Hypertension, under good control ____ orthostatic currently improved. 5. Anemia. 6. Encephalopathy and dementia. RECOMMENDATIONS: Will continue with the current cardiac care. Discharge planning as per Dr. Lamb. Antibiotic as per Dr. Lamb ____. Dictated By: JEAN MARIE DEWITT MD AV/LIZ Conf#: [id number] DID#: [id number] CC: ALEXANDER LAMB MD;*End*
--- NOTE | 2016-10-11 03:27 | DS ---
DATE OF ADMISSION: 09/29/2016 DATE OF DISCHARGE: 10/10/2016 REASON FOR ADMISSION: Acute respiratory failure, acute bronchitis, ongoing pneumonia. HOSPITAL COURSE: The patient is a 80-year-old [place]an female, very well known to me, with history o f hypertension, depression, gastroesophageal reflux disease, anemia, anxiety disorder, status post l eft femur surgery, history of constipation, paroxysmal atrial fibrillation, recently admitted to [facility] on 09/22/2016 when she presented with septicemia, UTI, and pneumonia. She was stabilized and sent home with oral Levaquin as all cultures showed sensitivity to it. The firs t two days she was okay, but then she again had recurrent episodes of respiratory compromise. She w as wheezing and coughing frequently, not doing so well. She was sent back to the hospital for evalu ation. Upon admission, the patient was seen by the customs house broker, Dr. Rivera. The patient underwent echocardiogram which showed normal ejection fraction at 65% and stage I diastolic dysfunction heart failure. The patient was started on IV steroids, breathing treatment, and antibiotics, again broad spectrum secondary to ongoing pneumonia. CAT scan of the chest was ordered as well as the patient had unusual slow improvement. The CAT scan shows numerous micronodules in the right measuring up to 3 mm, at least 1 which demonstrated dense calcifications suggesting old granulomatous disease. Fol low up CT in 1 year suggested for stability. There are surgical changes around the distal esophagus suggesting prior gastrectomy. There is small left and trace right pleural effusion. There is comp ressive atelectasis versus infiltrate in the left lung, shotty mediastinal lymphadenopathy with mult iple subcentimeter lymph nodes, and precarinal lymph node which measures 10 mm in short axis. There is advance arteriosclerotic peripheral vascular disease, advanced atherosclerosis, multiple ____ de formities of the mid thoracic spine consistent with compression fractures suggested osteoporosis. I n addition, she complained of dizziness. I give her a bolus of fluids with improvement. Carotid ul trasound showed no evidence of hemodynamically significant stenosis. There was minimal scattered pl aque without significant stenosis. The patient slowly improved with steroids, breathing treatments, and antitussives. Also, she has severe insomnia and appears to be depressed. I added Lexapro and Trazodone. Sputum culture did show Gale albicans, so Diflucan was added. I am currently switchi ng her back to oral antibiotics. Overall, the patient is improving. Unfortunately she has not done well with physical therapy as she is quite debilitated yet and very weak. The plan is to send her to a [facility] facility for further physical therapy, strengthening, and care as the patient d efinitely needs higher level of care. DISCHARGE MEDICATIONS: She will be discharged with the following medications 1. Tylenol 650 q. 6 p.r.n. 2. I also put her on Tylenol routine 500 b.i.d. 3. DuoNeb 3 mL q. 2 p.r.n. 4. DuoNeb routine every 6 hours for 3 days. 5. Aspirin 81 mg daily. 6. Calcium plus D 1 tab b.i.d. 7. Klonopin 0.5 t.i.d. 8. Colace 100 q. 12 as needed. 9. Lovenox 40 mg subcutaneous daily for 7 days until she is more ambulatory. 10. Lexapro 5 mg daily. 11. Diflucan 100 mg daily for 7 more days. 12. Neurontin 300 mg t.i.d. 13. Robitussin with codeine p.r.n. for cough. 14. Hydralazine 25 q. 4 p.r.n. for systolic blood pressure greater than 170. 15. [place] 5/325 q. 6 p.r.n. for pain. We can discontinue antibiotics. 16. Milk of magnesia p.r.n. 17. Lopressor 25 b.i.d. 18. Multivitamin 1 tablet daily. 19. Bactroban applied b.i.d. to affected area. 20. Zofran 4 mg p.o. q. 4 p.r.n. for nausea and vomiting. 21. Protonix 40 mg daily. 22. Requip 0.25 at bedtime. 23. Trazodone 50 mg at night. 24. Ambien 10 mg at bedtime p.r.n. for insomnia. Previously, she was on amiodarone and digoxin, but heart rate is good in the 50s and 60s. The patie nt will be discharged. FINAL DIAGNOSES: 1. Acute respiratory failure. 2. Acute bronchitis. 3. Left basilar pneumonia. 4. Dementia. 5. Anemia. 6. Status post urinary tract infection sepsis and bacteremia on previous hospitalization just recen tly. 7. Chronic pain. 8. Insomnia. 9. Neuropathy. 10. Debilitated state. 11. Paroxysmal atrial fibrillation. 12. Depression. 13. Gastroesophageal reflux disease. 14. Status post left hip fracture, status post repair in the past. 15. History of pancytopenia. DISPOSITION: The patient will be discharged in stable but guarded condition to a [facility] for further care. Dictated By: ALEXANDER ROSADO/LIZ Conf#: [id number] DID#: [id number]
== END 2016-10-10 17:30 | DRG 193 ==
LOC: E/R 19:02 → PP2 22:49
PROVIDERS: ADMIT Internal Medicine; ATTEND Internal Medicine
DX: J18.9 Pneumonia, unspecified organism (principal); J96.00 Acute respiratory failure, unspecified whether with hypoxia or hypercapnia; F03.90 Unspecified dementia, unspecified severity, without behavioral disturbance, psychotic disturbance, mood disturbance, and anxiety; I48.0 Paroxysmal atrial fibrillation; G62.9 Polyneuropathy, unspecified; F32.9 Major depressive disorder, single episode, unspecified; I10 Essential (primary) hypertension; E87.6 Hypokalemia; G25.81 Restless legs syndrome; J20.9 Acute bronchitis, unspecified; G89.29 Other chronic pain; R53.81 Other malaise; K21.9 Gastro-esophageal reflux disease without esophagitis; D64.9 Anemia, unspecified; F41.9 Anxiety disorder, unspecified; G47.00 Insomnia, unspecified; M54.9 Dorsalgia, unspecified; D72.819 Decreased white blood cell count, unspecified; Z88.5 Allergy status to narcotic agent
CPT/HCPCS: 36415; 71010; 71250; 80048; 80053; 80202; 83605; 83735; 83880; 84100; 84145; 84484; 85025; 86850; 86900; 86901; 86920; 87040; 87070; 93005; 93306; 93880; 94640; 94664; 96374; 96375; 97110; 97162; 97530; J0692; J1650; J1940; J2920; J2930; J3370; J3480; J7030; J7040